=== PATIENT | male | born 1935 | race Caucasian/White ===

== ENCOUNTER 2018-03-12 13:23 | Inpatient (IN) | payer OTHER, BC ==
--- NOTE | 2018-03-12 14:45 | PDOC ---
History of Present Illness - General Chief Complaint: Wound Stated Complaint: PCP SENT Time Seen by Provider: 03/12/18 14:26 History Source: Patient Exam Limitations: No Limitations - History of Present Illness Initial Comments: 03/12/18 17:04 82-year-old male with complaints of worsening redness swelling and tenderness to his right lower extremity after having a basal cell removed by a manpower development specialist back on January 30. Patient states has been on multiple antibiotics including topicals with no improvement and states symptoms actually have worsened. Patient denies fever, chills or purulent drainage. Patient does state had a skin graft done from behind his right ear which also did not adhere to the wound. Patient has been seen by Dr. Obando who has referred the patient to an ER for IV antibiotics. Patient denies sensory changes distal of site, weakness of the lower extremity, or radiation of pain. Timing/Duration: constant, getting worse Severity: moderate Associated Symptoms: reports: denies symptoms Past History - Travel Traveled outside of the country in the last 30 days: No Close contact w/someone who was outside of country & ill: No - Past Medical History Allergies/Adverse Reactions: Allergies Allergy/AdvReac Type Severity Reaction Status Date / Time No Known Allergies Allergy Verified 03/12/18 13:24 Cardiac Disorders: Yes (irregular heart beat.) COPD: No CHF: No Other medical history: bronchitism hiatal hernia, skin cancer, - Immunization History Immunization Up to Date: No - Suicide/Smoking/Psychosocial Hx Smoking History: Never smoked Have you smoked in the past 12 months: No Information on smoking cessation initiated: No Hx Alcohol Use: No Drug/Substance Use Hx: No Patient Lives Alone: No Lives with/in: spouse/SO Review of Systems - Review of Systems Able to Perform ROS?: Yes Constitutional: No: Symptoms Reported HEENTM: No: Symptoms Reported Respiratory: No: Symptoms reported Cardiac (ROS): No: Symptoms Reported ABD/GI: No: Symptoms Reported Musculoskeletal: Yes: Muscle Pain (anterior RLE) Integumentary: Yes: Erythema, Lumps Neurological: No: Symptoms reported Endocrine: No: Symptoms Reported Hematologic/Lymphatic: No: Symptoms Reported *Physical Exam - Vital Signs Last Vital Signs Temp Pulse Resp BP Pulse Ox 97.9 F 116 H 16 120/62 99 03/12/18 13:24 03/12/18 13:24 03/12/18 13:24 03/12/18 13:24 03/12/18 13:24 - Physical Exam General Appearance: Yes: Nourished, Appropriately Dressed. No: Apparent Distress Respiratory/Chest: positive: Lungs Clear, Normal Breath Sounds. negative: Respiratory Distress, Accessory Muscle Use Cardiovascular: positive: Regular Rhythm, Tachycardia. negative: Murmur Gastrointestinal/Abdominal: positive: Soft. negative: Tenderness Extremity: positive: Normal Inspection (Noted 2 x 2 cm opened erythematous/ edematous wound to the mid shaft of right tibia. Surrounding skin erythematous edematous and warm to touch. No palpable fluctuance), Normal Range of Motion, Tender Integumentary: positive: Warm, Moist Neurologic: positive: Normal Mood/Affect, Motor Strength 5/5 Moderate Sedation - Procedure Monitoring Vital Signs: Procedure Monitoring Vital Signs Temperature 97.9 F 03/12/18 13:24 Pulse Rate 116 H 03/12/18 13:24 Respiratory Rate 16 03/12/18 13:24 Blood Pressure 120/62 03/12/18 13:24 O2 Sat by Pulse Oximetry (%) 99 03/12/18 13:24 ED Treatment Course - LABORATORY CBC & Chemistry Diagram: 03/12/18 15:20 03/12/18 15:20 Medical Decision Making - Medical Decision Making 03/12/18 17:00 Chief complaint: Nonhealing right anterior lower extremity wound after having a basal cell carcinoma removed on January 30. Patient has been on 3 different antibiotics including topical gentamicin and Bactroban with no improvement. supposed to dermatology JOAN Ba at [phone] full is requesting IV antibiotics and CT. Exam: Cellulitic open wound to the mid shaft of right tibia. Plan: Septic workup, IV Zosyn and Vanco ordered. Patient was ordered for duplex including CT with contrast. Consul placed to Dr. Fan infectious disease and will admit patient to hospitalist , ( patient is followed by Dr. Qiu) 03/12/18 17:10 Laboratory Tests 03/12/18 03/12/18 03/12/18 15:20 15:20 15:20 WBC 9.6 Hgb 15.1 Hct 43.3 Absolute Neuts (auto) 7.7 INR 1.10 H VBG pH 7.41 POC VBG pCO2 46.3 POC VBG pO2 28.7 Mixed VBG HCO3 29.0 H Sodium Potassium Chloride Carbon Dioxide Anion Gap BUN Creatinine Random Glucose Lactic Acid Albumin Urine Protein Urine Ketones Urine Nitrite Ur Leukocyte Esterase Urine WBC (Auto) Urine RBC (Auto) 03/12/18 03/12/18 03/12/18 15:20 15:20 15:38 WBC Hgb Hct Absolute Neuts (auto) INR VBG pH POC VBG pCO2 POC VBG pO2 Mixed VBG HCO3 Sodium 138 Potassium 4.7 Chloride 104 Carbon Dioxide 28 Anion Gap 6 L BUN 21 H Creatinine 0.8 Random Glucose 90 Lactic Acid 1.0 Albumin 3.3 L Urine Protein 1+ H Urine Ketones Trace H Urine Nitrite Negative Ur Leukocyte Esterase Negative Urine WBC (Auto) 4 Urine RBC (Auto) 4 03/12/18 17:11 chest x-ray shows again noted is a hernia at the left base with some congestive can changes and questionable pleural reaction/atelectasis at the left base. 03/12/18 17:34 Case discussed with hospitalist resident and will admit to Dr. Moreno *DC/Admit/Observation/Transfer Diagnosis at time of Disposition: Failure of outpatient treatment, Cellulitis of right lower leg - Discharge Dispostion Condition at time of disposition: Stable Decision to Admit order: Yes - Referrals Referrals: Samson Qiu MD [Primary Care Provider] - - Patient Instructions - Post Discharge Activity
[2018-03-12 15:53] LABS: VENOUS PC02 46.3 mmHg (38-52); VENOUS PH 7.41 (7.32-7.42); VENOUS PO2 28.7 mmHg (28-48)
[2018-03-12 15:58] LABS: BASO % 0.3 % (0-2.0); EOS % 0.8 % (0-4.5); HEMATOCRIT 43.3 % (35.4-49); HEMOGLOBIN 15.1 GM/dL (11.7-16.9); LYMPH % 11.8 % (8-40); MCH 31.4 pg (25.7-33.7); MEAN CELL VOLUME 89.9 fl (80-96); MEAN PLT VOLUME 8.1 fl (7.5-11.1); MONO % 6.8 % (3.8-10.2); NEUT % 80.3 % (42.8-82.8); PLATELET COUNT 310 K/MM3 (134-434); RBC 4.82 M/mm3 (4.00-5.60); WHITE BLOOD COUNT 9.6 K/mm3 (4.0-10.0)
[2018-03-12 16:06] LABS: URINE APPEARANCE SLCLOUDY; URINE BILIRUBIN NEGATIVE (<2.0 mg/dL); URINE COLOR AMBER; URINE GLUCOSE (UA) NEGATIVE (NEGATIVE); URINE KETONE TRACE (NEGATIVE); URINE LEUK ESTERASE NEGATIVE (NEGATIVE); URINE NITRITE NEGATIVE (NEGATIVE); URINE PROTEIN 1+ (NEGATIVE); URINE UROBILINOGEN NEGATIVE mg/dL (0.2-1.0)
[2018-03-12 16:16] LABS: ALBUMIN 3.3 g/dl (3.4-5.0); ALK PHOS 94 U/L (45-117); ANION GAP 6 MMOL/L (8-16); BILIRUBIN,TOTAL 0.5 mg/dL (0.2-1); BLOOD UREA NITROGEN 21 mg/dL (7-18); CALCIUM 9.1 mg/dL (8.5-10.1); CHLORIDE 104 mmol/L (98-107); CO2 28 mmol/L (21-32); CREATININE 0.8 mg/dL (0.55-1.3); GLUCOSE,RANDOM 90 mg/dL (74-106); POTASSIUM 4.7 mmol/L (3.5-5.1); SGOT/AST 24 U/L (15-37); SGPT/ALT 25 U/L (13-61); SODIUM 138 mmol/L (136-145); TOT PROT 7.1 g/dl (6.4-8.2)
[2018-03-12 16:30] LABS: EPI CELLS RARE /HPF (FEW); URINE HYALINE CAST 4 /lpf; URINE MUCUS MANY
[2018-03-12 16:34] LABS: INR 1.1 (0.83-1.09)
[2018-03-12] MEDS ORDERED: VANCOMYCIN 1 GRAM (PRE-DOCKED) 1,000 MG/250 ML BAG IVPB ONE ×2 (16:51→17:23)
[2018-03-12] MEDS ORDERED: PIPERACILLIN/TAZOB 4.5 GM 4.5 GM in DEXTROSE 5%-WATER 100 ML IVPB ONE (16:51)
[2018-03-12] MEDS ORDERED: PIPERACILLIN/TAZOB 4.5 GM 4.5 GM/100 ML BAG IVPB ONE (17:23)
--- NOTE | 2018-03-12 18:40 | PN ---
Teaching Attending Note Name of Resident: Breonna Gardner ATTENDING PHYSICIAN STATEMENT I saw and evaluated the patient. I reviewed the resident's note and discussed the case with the resident. I agree with the resident's findings and plan as documented with exceptions below. SUBJECTIVE: 82 yom with PMHx of HTN, HLD, ?arrhythmia, recently diagnosed basal cell carcinoma over left betancourt, s/p excision/graft placement from behind right ear has had progressive swelling/redness/discharge at the site of the wound. Has been seen by his academic associate Dr. Hernadez, s/p ?debridement and multiple abx, including topical bactroban/gentamicin and Oral doxycycline/cefodoxir with not much improvement. Today was sent to ED by her academic associate for IV abx and further treatment. reports some subjective chills but no reported fevers. 12 point ROS done, neg otherwise, fairly healthy and functional. OBJECTIVE: Vital Signs Period Temp Pulse Resp BP Sys/Clark Pulse Ox Last 24 Hr 97.9 F 116 16 120/62 99 Intake & Output 03/09/18 03/10/18 03/11/18 03/12/18 23:59 23:59 23:59 23:59 Weight 138 lb GENERAL: Awake, alert, and fully oriented, in no acute distress. HEAD: Normal with no signs of trauma. EYES: Pupils equal, round and reactive to light, extraocular movements intact, sclera anicteric, conjunctiva clear. No lid lag. EARS, NOSE, THROAT: Ears normal, nares patent, oropharynx clear without exudates. Moist mucous membranes. NECK: Normal range of motion, supple without lymphadenopathy, JVD, or masses. LUNGS: Breath sounds equal, clear to auscultation bilaterally. No wheezes, and no crackles. No accessory muscle use. HEART: S1S2 irregular, tachycardic ABDOMEN: Soft, nontender, not distended, normoactive bowel sounds, no guarding, no rebound, no masses. MUSCULOSKELETAL: Normal range of motion at all joints. No bony deformities or tenderness. No CVA tenderness except LLE limited by pain. UPPER EXTREMITIES: 2+ pulses, warm, well-perfused. No cyanosis. No clubbing. No peripheral edema. LOWER EXTREMITIES: 2 cm oval area over left betancourt with erythema, mild tenderness , 1 cm superficial ulcer with minimal yellowish foul smelling discharge with surrounding area of fluctuation, minimal yellowish drainage noted on expressing the area, surrounding erythema, positive DP pulses, NEUROLOGICAL: Cranial nerves II-XII intact. Normal speech. Gait deferred PSYCHIATRIC: Cooperative. Good eye contact. Appropriate mood and affect. SKIN: Warm, dry, normal turgor, no rashes or lesions noted, normal capillary refill. Home Medications Medication Instructions Recorded Aspirin [ASA -] 81 mg PO DAILY 03/12/18 Cefadroxil 500 mg PO BID 03/12/18 Simvastatin [Zocor -] 40 mg PO HS 03/12/18 Terazosin HCl 10 mg PO DAILY 03/12/18 Active Medications Heparin Sodium (Porcine) (Heparin -) 5,000 unit SQ Q8H-IV ISAAC Laboratory Results - last 24 hr 03/12/18 03/12/18 03/12/18 13:20 15:20 15:20 WBC 9.6 RBC 4.82 Hgb 15.1 Hct 43.3 MCV 89.9 MCH 31.4 MCHC 35.0 RDW 13.0 Plt Count 310 MPV 8.1 Absolute Neuts (auto) 7.7 Neutrophils % 80.3 Lymphocytes % 11.8 Monocytes % 6.8 Eosinophils % 0.8 Basophils % 0.3 Nucleated RBC % 0 PT with INR 13.00 INR 1.10 H VBG pH POC VBG pCO2 POC VBG pO2 Mixed VBG HCO3 Sodium Potassium Chloride Carbon Dioxide Anion Gap BUN Creatinine Creat Clearance w eGFR Random Glucose Lactic Acid Calcium Total Bilirubin AST ALT Alkaline Phosphatase Troponin I < 0.02 Total Protein Albumin Urine Color Urine Appearance Urine pH Ur Specific [place] Urine Protein Urine Glucose (UA) Urine Ketones Urine Blood Urine Nitrite Urine Bilirubin Urine Urobilinogen Ur Leukocyte Esterase Urine WBC (Auto) Urine RBC (Auto) Ur Epithelial Cells Hyaline Casts Urine Mucus 03/12/18 03/12/18 03/12/18 15:20 15:20 15:20 WBC RBC Hgb Hct MCV MCH MCHC RDW Plt Count MPV Absolute Neuts (auto) Neutrophils % Lymphocytes % Monocytes % Eosinophils % Basophils % Nucleated RBC % PT with INR INR VBG pH 7.41 POC VBG pCO2 46.3 POC VBG pO2 28.7 Mixed VBG HCO3 29.0 H Sodium 138 Potassium 4.7 Chloride 104 Carbon Dioxide 28 Anion Gap 6 L BUN 21 H Creatinine 0.8 Creat Clearance w eGFR > 60 Random Glucose 90 Lactic Acid 1.0 Calcium 9.1 Total Bilirubin 0.5 AST 24 ALT 25 Alkaline Phosphatase 94 Troponin I Total Protein 7.1 Albumin 3.3 L Urine Color Urine Appearance Urine pH Ur Specific [place] Urine Protein Urine Glucose (UA) Urine Ketones Urine Blood Urine Nitrite Urine Bilirubin Urine Urobilinogen Ur Leukocyte Esterase Urine WBC (Auto) Urine RBC (Auto) Ur Epithelial Cells Hyaline Casts Urine Mucus 03/12/18 15:38 WBC RBC Hgb Hct MCV MCH MCHC RDW Plt Count MPV Absolute Neuts (auto) Neutrophils % Lymphocytes % Monocytes % Eosinophils % Basophils % Nucleated RBC % PT with INR INR VBG pH POC VBG pCO2 POC VBG pO2 Mixed VBG HCO3 Sodium Potassium Chloride Carbon Dioxide Anion Gap BUN Creatinine Creat Clearance w eGFR Random Glucose Lactic Acid Calcium Total Bilirubin AST ALT Alkaline Phosphatase Troponin I Total Protein Albumin Urine Color [place] Urine Appearance Slcloudy Urine pH 5.0 Ur Specific [place] 1.028 Urine Protein 1+ H Urine Glucose (UA) Negative Urine Ketones Trace H Urine Blood Negative Urine Nitrite Negative Urine Bilirubin Negative Urine Urobilinogen Negative Ur Leukocyte Esterase Negative Urine WBC (Auto) 4 Urine RBC (Auto) 4 Ur Epithelial Cells Rare Hyaline Casts 4 Urine Mucus Many CXr with hiatal hernia, image and results reviewed ASSESSMENT AND PLAN: 82 yom with LLE cellulitis wiht suspected abscess at recent basal cell carcinoma excision/graft placement site. -LLE cellulitis with suspected abscess -recently diagnosed basal cell ca left shift s/p excision/graft placement and ? debridement of the wound -?arrhythmia -HTN -HLD Plan: Zosyn/vancomycin. Blood/wound cx. Suspect needs I&D, surgical consult. ID input. Dermatology input Dr. Hernadez. NPO after midnight just in case. Gentle hydration. CT LE/LE duplex ordered from ED Check ESR/CRP. Check EKG Continue terazocin/statin DVTPPX lovenox Dispo pending resolution of medical issues. Plan discussed with patient in detail, all questions answered. total admit time spent 55 min.
[2018-03-12] MEDS ORDERED: HEPARIN NA (PORCINE) 5,000 UNITS/ML 1ML VIAL SQ SCH (18:45)
--- NOTE | 2018-03-12 18:47 | HP ---
CHIEF COMPLAINT: RLE swelling and pain PCP:Dr Qiu HISTORY OF PRESENT ILLNESS: 82 y/o male with PMH of HLD, basal cell carcinoma, chronic bronchitis presents to the ER from his PCP with worsening RLE swelling/tenderness/pain- patient was diagnosed at the end of january with basal cell carcinoma on his right betancourt where he was sent to a plastic surgeon who removed the lesion and used skin from his right ear as a graft. patient had no complaints for a week then started to develop increased pain, swelling and pressure. He went back to the plastic surgeon back and forth where there was two I and D's done ? unclear excaxctly if cultures were taken etc. He failed outpatient antibiotics a few times (will clarify exactly which abx were given) he denies any recent travel ER course was notable for: (1)given vanc and zosyn (2)normal [place] (3)ultrasound CT pending Recent Travel: denies PAST MEDICAL HISTORY: see above PAST SURGICAL HISTORY: appendectomy, cataract, hernia Social History: Smoking:denies Alcohol:denies Drugs: denies Family History: DM on his parents side Allergies No Known Allergies Allergy (Verified 03/12/18 13:24) HOME MEDICATIONS: Home Medications Medication Instructions Recorded Aspirin [ASA -] 81 mg PO DAILY 03/12/18 Cefadroxil 500 mg PO BID 03/12/18 Simvastatin [Zocor -] 40 mg PO HS 03/12/18 Terazosin HCl 10 mg PO DAILY 03/12/18 REVIEW OF SYSTEMS CONSTITUTIONAL: Absent: fever, chills, diaphoresis, generalized weakness, malaise, loss of appetite, weight change HEENT: Absent: rhinorrhea, nasal congestion, throat pain, throat swelling, difficulty swallowing, mouth swelling, ear pain, eye pain, visual changes CARDIOVASCULAR: Absent: chest pain, syncope, palpitations, irregular heart rate, lightheadedness , peripheral edema RESPIRATORY: Absent: cough, shortness of breath, dyspnea with exertion, orthopnea, wheezing, stridor, hemoptysis GASTROINTESTINAL: Absent: abdominal pain, abdominal distension, nausea, vomiting, diarrhea, constipation, melena, hematochezia GENITOURINARY: Absent: dysuria, frequency, urgency, hesitancy, hematuria, flank pain, genital pain MUSCULOSKELETAL: Absent: myalgia, arthralgia, joint swelling, back pain, neck pain SKIN: Absent: rash, itching, pallor HEMATOLOGIC/IMMUNOLOGIC: Absent: easy bleeding, easy bruising, lymphadenopathy, frequent infections ENDOCRINE: Absent: unexplained weight gain, unexplained weight loss, heat intolerance, cold intolerance NEUROLOGIC: Absent: headache, focal weakness or paresthesias, dizziness, unsteady gait, seizure, mental status changes, bladder or bowel incontinence PSYCHIATRIC: Absent: anxiety, depression, suicidal or homicidal ideation, hallucinations. PHYSICAL EXAMINATION Vital Signs - 24 hr 03/12/18 13:24 Temperature 97.9 F Pulse Rate 116 H Respiratory 16 Rate Blood Pressure 120/62 O2 Sat by Pulse 99 Oximetry (%) GENERAL: Awake, alert, and fully oriented, in no acute distress. EYES:no scleral icterus NECK: no JVD no lymphadenopathy LUNGS: CTA B/L; no rales, rhonchi or wheezing HEART: tachycardic, normal S1 and S2 without murmur, rub or gallop. ABDOMEN: Soft, nontender, not distended, normoactive bowel sounds, no guarding, no rebound, no masses. No hepatomegaly or splenomegaly. MUSCULOSKELETAL: Normal range of motion at all joints. No bony deformities or tenderness. No CVA tenderness. EXTREMITY: RLE anterior betancourt erythematous with areas of fluctuance, edema some drainage; slight tenderness upon palpation NEUROLOGICAL: Cranial nerves II-XII intact. Normal speech. Normal gait. PSYCHIATRIC: Cooperative. Good eye contact. Appropriate mood and affect. SKIN: Warm, dry, normal turgor, no rashes or lesions noted, normal capillary refill. Laboratory Results - last 24 hr 03/12/18 03/12/18 03/12/18 13:20 15:20 15:20 WBC 9.6 RBC 4.82 Hgb 15.1 Hct 43.3 MCV 89.9 MCH 31.4 MCHC 35.0 RDW 13.0 Plt Count 310 MPV 8.1 Absolute Neuts (auto) 7.7 Neutrophils % 80.3 Lymphocytes % 11.8 Monocytes % 6.8 Eosinophils % 0.8 Basophils % 0.3 Nucleated RBC % 0 PT with INR 13.00 INR 1.10 H VBG pH POC VBG pCO2 POC VBG pO2 Mixed VBG HCO3 Sodium Potassium Chloride Carbon Dioxide Anion Gap BUN Creatinine Creat Clearance w eGFR Random Glucose Lactic Acid Calcium Total Bilirubin AST ALT Alkaline Phosphatase Troponin I < 0.02 Total Protein Albumin Urine Color Urine Appearance Urine pH Ur Specific [place] Urine Protein Urine Glucose (UA) Urine Ketones Urine Blood Urine Nitrite Urine Bilirubin Urine Urobilinogen Ur Leukocyte Esterase Urine WBC (Auto) Urine RBC (Auto) Ur Epithelial Cells Hyaline Casts Urine Mucus 03/12/18 03/12/18 03/12/18 15:20 15:20 15:20 WBC RBC Hgb Hct MCV MCH MCHC RDW Plt Count MPV Absolute Neuts (auto) Neutrophils % Lymphocytes % Monocytes % Eosinophils % Basophils % Nucleated RBC % PT with INR INR VBG pH 7.41 POC VBG pCO2 46.3 POC VBG pO2 28.7 Mixed VBG HCO3 29.0 H Sodium 138 Potassium 4.7 Chloride 104 Carbon Dioxide 28 Anion Gap 6 L BUN 21 H Creatinine 0.8 Creat Clearance w eGFR > 60 Random Glucose 90 Lactic Acid 1.0 Calcium 9.1 Total Bilirubin 0.5 AST 24 ALT 25 Alkaline Phosphatase 94 Troponin I Total Protein 7.1 Albumin 3.3 L Urine Color Urine Appearance Urine pH Ur Specific [place] Urine Protein Urine Glucose (UA) Urine Ketones Urine Blood Urine Nitrite Urine Bilirubin Urine Urobilinogen Ur Leukocyte Esterase Urine WBC (Auto) Urine RBC (Auto) Ur Epithelial Cells Hyaline Casts Urine Mucus 03/12/18 15:38 WBC RBC Hgb Hct MCV MCH MCHC RDW Plt Count MPV Absolute Neuts (auto) Neutrophils % Lymphocytes % Monocytes % Eosinophils % Basophils % Nucleated RBC % PT with INR INR VBG pH POC VBG pCO2 POC VBG pO2 Mixed VBG HCO3 Sodium Potassium Chloride Carbon Dioxide Anion Gap BUN Creatinine Creat Clearance w eGFR Random Glucose Lactic Acid Calcium Total Bilirubin AST ALT Alkaline Phosphatase Troponin I Total Protein Albumin Urine Color [place] Urine Appearance Slcloudy Urine pH 5.0 Ur Specific [place] 1.028 Urine Protein 1+ H Urine Glucose (UA) Negative Urine Ketones Trace H Urine Blood Negative Urine Nitrite Negative Urine Bilirubin Negative Urine Urobilinogen Negative Ur Leukocyte Esterase Negative Urine WBC (Auto) 4 Urine RBC (Auto) 4 Ur Epithelial Cells Rare Hyaline Casts 4 Urine Mucus Many ASSESSMENT/PLAN: 82 y/o male with PMH of HLD, basal cell carcinoma, chronic bronchitis presents to the ED with worsening RLE swelling, tenderness, pain possible abscess at the excision/graft site #RLE Abscess receieved vand and zosyn in the ED -c/w vanc and zosyn for now -f/u wound cx -surgery and ID consulted -ESR/CRP ordered -monitor hemodynamics -duplex and CT scan pending to evaluate for fluctuance -NPO after midnight for possible procedure -holding lovenox -will clarify with pharmacy what abx patient was on in past #HLD -c/w simvastatin 40mg #BPH -c/w home meds F/E/N D5@83mls/hr monitor BMP NPO after midnight Problem List - Problem (1) Cellulitis of right lower leg Code(s): L03.115 - CELLULITIS OF RIGHT LOWER LIMB (2) Failure of outpatient treatment Code(s): Z78.9 - OTHER SPECIFIED HEALTH STATUS Visit type - Emergency Visit Emergency Visit: Yes Care time: The patient presented to the Emergency Department on the above date and was hospitalized for further evaluation of their emergent condition. - New Patient This patient is new to me today: Yes Date on this admission: 03/12/18 - Critical Care Critical Care patient: No
[2018-03-12] MEDS ORDERED: HEPARIN NA (PORCINE) 5,000 UNITS/ML 1ML VIAL ONE (18:54)
[2018-03-12] MEDS ORDERED: VANCOMYCIN 1 GRAM (PRE-DOCKED) 1,000 MG/250 ML BAG IVPB SCH (19:45)
[2018-03-12] MEDS: DEXTROSE 5%-NORMAL SALINE 1,000 ML IV SCH (20:45)
[2018-03-13] MEDS ORDERED: PIPERACILLIN/TAZOB 2.25 GM 2.25 GM in DEXTROSE 5%-WATER - 50 ML IVPB SCH (02:00)
[2018-03-13] MEDS: PIPERACILLIN/TAZOB 2.25 GM 2.25 GM in DEXTROSE 5%-WATER - 50 ML IVPB SCH ×2 (02:08→10:33)
[2018-03-13] MEDS ORDERED: PIPERACILLIN/TAZOB 2.25 GM 2.25 GM/50 ML BAG IVPB ONE (02:59)
[2018-03-13] MEDS ORDERED: VANCOMYCIN 1 GRAM (PRE-DOCKED) 1,000 MG/250 ML BAG IVPB ONE (04:35)
[2018-03-13 05:34] LABS: BASO % 0.4 % (0-2.0); EOS % 1.9 % (0-4.5); HEMATOCRIT 40.4 % (35.4-49); HEMOGLOBIN 13.3 GM/dL (11.7-16.9); LYMPH % 15.9 % (8-40); MCHC 32.9 g/dl (32.0-35.9); MEAN CELL VOLUME 91.1 fl (80-96); MEAN PLT VOLUME 7.6 fl (7.5-11.1); MONO % 6.7 % (3.8-10.2); NEUT % 75.1 % (42.8-82.8); PLATELET COUNT 278 K/MM3 (134-434); RBC 4.43 M/mm3 (4.00-5.60); RDW 13.3 % (11.9-15.9); WHITE BLOOD COUNT 8.5 K/mm3 (4.0-10.0)
[2018-03-13] MEDS ORDERED: VANCOMYCIN 1 GRAM (PRE-DOCKED) 1,000 MG/250 ML BAG IVPB SCH (06:00)
[2018-03-13 06:02] LABS: ALBUMIN 2.9 g/dl (3.4-5.0); ALK PHOS 74 U/L (45-117); ANION GAP 5 MMOL/L (8-16); BILIRUBIN,TOTAL 0.9 mg/dL (0.2-1); BLOOD UREA NITROGEN 18 mg/dL (7-18); CALCIUM 8.1 mg/dL (8.5-10.1); CHLORIDE 107 mmol/L (98-107); CO2 26 mmol/L (21-32); CREATININE 0.9 mg/dL (0.55-1.3); GLUCOSE,RANDOM 81 mg/dL (74-106); PHOSPHOROUS 3.2 mg/dL (2.5-4.9); POTASSIUM 4.2 mmol/L (3.5-5.1); SGOT/AST 13 U/L (15-37); SGPT/ALT 20 U/L (13-61); SODIUM 137 mmol/L (136-145); TOT PROT 5.9 g/dl (6.4-8.2)
--- NOTE | 2018-03-13 08:17 | PN ---
Physical Exam: SUBJECTIVE: Patient seen and examined at bedside- no acute events overnight; patient states he is feeling well; denies having any CP./SOB/N/V fevers or chills, has a slight throbbing sensation at the betancourt but only lasting a few seconds otherwise is not very tender. OBJECTIVE: Vital Signs Period Temp Pulse Resp BP Sys/Clark Pulse Ox Last 24 Hr 97.9 F 76-116 16-20 105-120/62-97 96-99 GENERAL: The patient is awake, alert, and fully oriented, in no acute distress. EYES: no scleral icterus. . NECK: no JVD, no lymphadenopathy LUNGS: CTA B/L; no rales, rhonchi or wheezing. HEART: Regular rate tachycardic, S1, S2 without murmur, rub or gallop. ABDOMEN: Soft, nontender, nondistended, normoactive bowel sounds, no guarding, no rebound, no hepatosplenomegaly, no masses. EXTREMITIES: RLE nickel shaped area over right betancourt with erythema, slightly tender upon palpation; with superficial ulcer with minimal drainage and fluctuance appreciated. PSYCH: Normal mood, normal affect. SKIN: Warm, dry, normal turgor, no rashes or lesions noted Laboratory Results - last 24 hr 03/12/18 03/12/18 03/12/18 13:20 15:20 15:20 WBC 9.6 RBC 4.82 Hgb 15.1 Hct 43.3 MCV 89.9 MCH 31.4 MCHC 35.0 RDW 13.0 Plt Count 310 MPV 8.1 Absolute Neuts (auto) 7.7 Neutrophils % 80.3 Lymphocytes % 11.8 Monocytes % 6.8 Eosinophils % 0.8 Basophils % 0.3 Nucleated RBC % 0 ESR PT with INR 13.00 INR 1.10 H VBG pH POC VBG pCO2 POC VBG pO2 Mixed VBG HCO3 Sodium Potassium Chloride Carbon Dioxide Anion Gap BUN Creatinine Creat Clearance w eGFR Random Glucose Lactic Acid Calcium Phosphorus Magnesium Total Bilirubin AST ALT Alkaline Phosphatase Troponin I < 0.02 C-Reactive Protein Total Protein Albumin Urine Color Urine Appearance Urine pH Ur Specific Napoleon Urine Protein Urine Glucose (UA) Urine Ketones Urine Blood Urine Nitrite Urine Bilirubin Urine Urobilinogen Ur Leukocyte Esterase Urine WBC (Auto) Urine RBC (Auto) Ur Epithelial Cells Hyaline Casts Urine Mucus 03/12/18 03/12/18 03/12/18 15:20 15:20 15:20 WBC RBC Hgb Hct MCV MCH MCHC RDW Plt Count MPV Absolute Neuts (auto) Neutrophils % Lymphocytes % Monocytes % Eosinophils % Basophils % Nucleated RBC % ESR PT with INR INR VBG pH 7.41 POC VBG pCO2 46.3 POC VBG pO2 28.7 Mixed VBG HCO3 29.0 H Sodium 138 Potassium 4.7 Chloride 104 Carbon Dioxide 28 Anion Gap 6 L BUN 21 H Creatinine 0.8 Creat Clearance w eGFR > 60 Random Glucose 90 Lactic Acid 1.0 Calcium 9.1 Phosphorus Magnesium Total Bilirubin 0.5 AST 24 ALT 25 Alkaline Phosphatase 94 Troponin I C-Reactive Protein Total Protein 7.1 Albumin 3.3 L Urine Color Urine Appearance Urine pH Ur Specific Napoleon Urine Protein Urine Glucose (UA) Urine Ketones Urine Blood Urine Nitrite Urine Bilirubin Urine Urobilinogen Ur Leukocyte Esterase Urine WBC (Auto) Urine RBC (Auto) Ur Epithelial Cells Hyaline Casts Urine Mucus 03/12/18 03/12/18 03/12/18 15:38 21:50 21:50 WBC RBC Hgb Hct MCV MCH MCHC RDW Plt Count MPV Absolute Neuts (auto) Neutrophils % Lymphocytes % Monocytes % Eosinophils % Basophils % Nucleated RBC % ESR PT with INR INR VBG pH POC VBG pCO2 POC VBG pO2 Mixed VBG HCO3 Sodium Potassium Chloride Carbon Dioxide Anion Gap BUN Creatinine Creat Clearance w eGFR Random Glucose Lactic Acid 1.1 Calcium Phosphorus Magnesium Total Bilirubin AST ALT Alkaline Phosphatase Troponin I C-Reactive Protein 0.5 H Total Protein Albumin Urine Color [place] Urine Appearance Slcloudy Urine pH 5.0 Ur Specific Napoleon 1.028 Urine Protein 1+ H Urine Glucose (UA) Negative Urine Ketones Trace H Urine Blood Negative Urine Nitrite Negative Urine Bilirubin Negative Urine Urobilinogen Negative Ur Leukocyte Esterase Negative Urine WBC (Auto) 4 Urine RBC (Auto) 4 Ur Epithelial Cells Rare Hyaline Casts 4 Urine Mucus Many 03/12/18 03/13/18 03/13/18 21:50 05:00 05:00 WBC 8.5 RBC 4.43 Hgb 13.3 Hct 40.4 MCV 91.1 MCH 30.0 MCHC 32.9 RDW 13.3 Plt Count 278 MPV 7.6 Absolute Neuts (auto) 6.4 Neutrophils % 75.1 Lymphocytes % 15.9 D Monocytes % 6.7 Eosinophils % 1.9 D Basophils % 0.4 Nucleated RBC % 0 ESR 44 H PT with INR INR VBG pH POC VBG pCO2 POC VBG pO2 Mixed VBG HCO3 Sodium 137 Potassium 4.2 Chloride 107 Carbon Dioxide 26 Anion Gap 5 L BUN 18 Creatinine 0.9 Creat Clearance w eGFR > 60 Random Glucose 81 Lactic Acid Calcium 8.1 L Phosphorus 3.2 Magnesium 2.0 Total Bilirubin 0.9 AST 13 L ALT 20 Alkaline Phosphatase 74 Troponin I C-Reactive Protein Total Protein 5.9 L Albumin 2.9 L Urine Color Urine Appearance Urine pH Ur Specific Napoleon Urine Protein Urine Glucose (UA) Urine Ketones Urine Blood Urine Nitrite Urine Bilirubin Urine Urobilinogen Ur Leukocyte Esterase Urine WBC (Auto) Urine RBC (Auto) Ur Epithelial Cells Hyaline Casts Urine Mucus Active Medications Generic Name Dose Route Start Last Admin Trade Name Freq PRN Reason Stop Dose Admin Vancomycin HCl 1,000 mg in 250 mls @ 166.667 mls/hr 03/12/18 19:45 Vancomycin (Pre-Docked) IVPB Q12H ISAAC Protocol Dextrose/Sodium Chloride 1,000 mls @ 83 mls/hr 03/12/18 19:00 03/12/18 20:45 D5-Ns - IV 83 mls/hr ASDIR ISAAC Administration Piperacillin Sod/Tazobactam 50 mls @ 100 mls/hr 03/13/18 02:00 Sod 2.25 gm/ Dextrose IVPB Q8H-IV ISAAC Protocol Vancomycin HCl 1,000 mg in 250 mls @ 166.667 mls/hr 03/13/18 06:00 03/13/18 05:23 Vancomycin (Pre-Docked) IVPB 03/13/18 19:29 166.667 mls/hr Q12H ISAAC Administration Protocol Piperacillin Sod/Tazobactam 50 mls @ 100 mls/hr 03/13/18 02:00 03/13/18 02:08 Sod 2.25 gm/ Dextrose IVPB 03/13/18 18:29 100 mls/hr Q8H-IV ISAAC Administration Protocol ASSESSMENT/PLAN: 82 y/o male with PMH of HLD, basal cell carcinoma, chronic bronchitis presents to the ED with worsening RLE swelling, tenderness, pain possible abscess at the excision/graft site #RLE Abscess receieved vanc and zosyn in the ED -c/w vanc and zosyn -f/u wound cx -surgery and ID consulted -ESR/CRP both elevated -duplex negative for DVT; CT scan not showing any evidence of abscess or acute pathology -arash Patterson saw pt tody no surgery advised leg elevation with dressing changes BID -will clarify with pharmacy what abx patient was on in past #HLD -c/w simvastatin 40mg #BPH -c/w home meds DVT PPX: lovenox (holding in light of possible procedure?) F/E/N D5@83mls/hr monitor BMP sodium controlled diet Problem List - Problems (1) Cellulitis of right lower leg Code(s): L03.115 - CELLULITIS OF RIGHT LOWER LIMB (2) Failure of outpatient treatment Code(s): Z78.9 - OTHER SPECIFIED HEALTH STATUS Visit type - Emergency Visit Emergency Visit: Yes ED Registration Date: 03/12/18 Care time: The patient presented to the Emergency Department on the above date and was hospitalized for further evaluation of their emergent condition. - New Patient This patient is new to me today: No - Critical Care Critical Care patient: No
--- NOTE | 2018-03-13 10:23 | CONSULT ---
- Consultation REQUESTING PROVIDER: ER MD CONSULT REQUEST: We have been asked to surgically evaluate this patient for mangement of an open wound of the RLE PCP:Marisela Vela HISTORY OF PRESENT ILLNESS: SAHARAP who is an 82 y/o white male s/p Mohs surgery for a BCC of the RLE and application of a FTSG from behind the right ear in early February 2018; he apparently by hx. had breakdown of the wound and probable slough of the skin graft; he has had tx. w/ antibiotics and LWC w/poor results; he was sent to the ER for failure of OP tx.; he has some pain at the site of the excision and he denies trauma to the area; he has had a previous BCC excision in the left LE.. PMHx: arrythmia; HLD; HTN PSHx: none Home Medications Medication Instructions Recorded Aspirin [ASA -] 81 mg PO DAILY 03/12/18 Cefadroxil 500 mg PO BID 03/12/18 Simvastatin [Zocor -] 40 mg PO HS 03/12/18 Terazosin HCl 10 mg PO DAILY 03/12/18 Allergies Allergy/AdvReac Type Severity Reaction Status Date / Time No Known Allergies Allergy Verified 03/12/18 13:24 PHYSICAL EXAM: GENERAL: Awake, alert, and fully oriented, in no acute distress. HEAD: Normal with no signs of trauma; scar behind right ear well healed. EYES: sclera anicteric, conjunctiva clear. NECK: Normal ROM, supple without lymphadenopathy, JVD, or masses. LUNGS: Clear to auscultation bilat anteriorly. No wheezes, and no crackles. No accessory muscle use. HEART: Irregular rate and rhythm. ABDOMEN: Soft, nontender, not distended, normoactive bowel sounds, no guarding, no rebound, no masses. No organomegaly. MUSCULOSKELETAL: Normal ROM at all joints. No bony deformities or tenderness. No CVA tenderness. UPPER EXTREMITIES: 2+ pulses, warm, well-perfused. No cyanosis. Cap refill <2 seconds. No peripheral edema. LOWER EXTREMITIES: 2+ pulses, warm, well-perfused. No calf tenderness. There is RLE peripheral edema. NEUROLOGICAL: Normal speech, gait not observed. PSYCH: Cooperative. Good eye contact. Appropriate mood and affect. SKIN: Open wound RLE ~ 2.5 cm. in greatest dimension w/STS w/surrounding edema and violaceous appearing skin; there is TTP; there is no purulent d/c but the wound appears to be superficially infected; o/w negative. Vital Signs Temperature 97.9 F 03/12/18 13:24 Pulse Rate 76 03/13/18 06:11 Respiratory Rate 20 03/13/18 06:11 Blood Pressure 105/70 03/13/18 06:11 O2 Sat by Pulse Oximetry (%) 97 03/13/18 06:11 Lab Results WBC 8.5 K/mm3 (4.0-10.0) 03/13/18 05:00 RBC 4.43 M/mm3 (4.00-5.60) 03/13/18 05:00 Hgb 13.3 GM/dL (11.7-16.9) 03/13/18 05:00 Hct 40.4 % (35.4-49) 03/13/18 05:00 MCV 91.1 fl (80-96) 03/13/18 05:00 MCHC 32.9 g/dl (32.0-35.9) 03/13/18 05:00 RDW 13.3 % (11.9-15.9) 03/13/18 05:00 Plt Count 278 K/MM3 (134-434) 03/13/18 05:00 Sodium 137 mmol/L (136-145) 03/13/18 05:00 Potassium 4.2 mmol/L (3.5-5.1) 03/13/18 05:00 Chloride 107 mmol/L (98-107) 03/13/18 05:00 Carbon Dioxide 26 mmol/L (21-32) 03/13/18 05:00 Anion Gap 5 MMOL/L (8-16) L 03/13/18 05:00 BUN 18 mg/dL (7-18) 03/13/18 05:00 Creatinine 0.9 mg/dL (0.55-1.3) 03/13/18 05:00 Random Glucose 81 mg/dL (74-106) 03/13/18 05:00 Calcium 8.1 mg/dL (8.5-10.1) L 03/13/18 05:00 INR 1.10 (0.83-1.09) H 03/12/18 15:20 Imaging w/u to date reviewed. IMP: open wound RLE s/p excision of a BCC and application of a FTSG w/slough and wound infection; there is no evidence of abscess or collection clinically or on imaging. PLAN: Advise leg elevation w/ankle above the level of the chest; NS wet to dry dressing changes BID; IVAB's and DVT prophylaxis; will f/u. Odilon Vidal MD FACS
--- NOTE | 2018-03-13 12:58 | EKG ---
Test Reason : Blood Pressure : / mmHG Vent. Rate : 098 BPM Atrial Rate : 098 BPM P-R Int : 140 ms QRS Dur : 092 ms QT Int : 344 ms P-R-T Axes : 051 084 032 degrees QTc Int : 439 ms SINUS RHYTHM WITH PREMATURE SUPRAVENTRICULAR COMPLEXES POSSIBLE LEFT ATRIAL ENLARGEMENT BORDERLINE ECG WHEN COMPARED WITH ECG OF 07-FEB-2011 14:54, NO SIGNIFICANT CHANGE WAS FOUND Confirmed by Carlton Medina ([id number]) on 03/13/2018 12:58:16 PM Referred By: Confirmed By:Carlton Medina
[2018-03-13] MEDS: DEXTROSE 5%-NORMAL SALINE 1,000 ML IV SCH (13:03)
--- NOTE | 2018-03-13 13:07 | CON.ID ---
Consult Consult Specialty:: infectious diseases Reason for Consultation:: bacteremia,wound infection - History of Present Illness Chief Complaint: wound infection History of Present Illness: 82 y/o male with PMH of HLD, basal cell carcinoma, chronic bronchitis admitted to the hospital because of non healing wound which ahs got infected and has not been healing post op patient was diagnosed at the end of january with basal cell carcinoma on his right betancourt where he was sent to a plastic surgeon who removed the lesion and used skin from his right ear as a graft. patient had no complaints for a week then started to develop increased pain, swelling and pressure. He went back to the plastic surgeon there was two I and D's done no cx from there patient was started on abx orally on which he did not improve Now patient has got admitted with infected wound and also his blood cx are positive] patient does not have any fever or any other symptoms - History Source History Provided By: Patient, Family Member Limitations to Obtaining History: No Limitations - Alcohol/Substance Use Hx Alcohol Use: No - Smoking History Smoking history: Never smoked Have you smoked in the past 12 months: No Home Medications - Allergies Allergies/Adverse Reactions: Allergies Allergy/AdvReac Type Severity Reaction Status Date / Time No Known Allergies Allergy Verified 03/12/18 13:24 - Home Medications Home Medications: Ambulatory Orders Aspirin [ASA -] 81 mg PO DAILY 03/12/18 Cefadroxil 500 mg PO BID 03/12/18 Simvastatin [Zocor -] 40 mg PO HS 03/12/18 Terazosin HCl 10 mg PO DAILY 03/12/18 Review of Systems - Review of Systems Constitutional: reports: No Symptoms Eyes: reports: No Symptoms HENT: reports: No Symptoms Neck: reports: No Symptoms Cardiovascular: reports: No Symptoms Respiratory: reports: No Symptoms Gastrointestinal: reports: No Symptoms Genitourinary: reports: No Symptoms Musculoskeletal: reports: Other Integumentary: reports: Change in Color, Erythema, Wound Neurological: reports: No Symptoms Endocrine: reports: No Symptoms Hematology/Lymphatic: reports: No Symptoms Psychiatric: reports: No Symptoms Physical Exam Vital Signs: Vital Signs Temperature 97.7 F 03/13/18 11:35 Pulse Rate 67 03/13/18 11:35 Respiratory Rate 18 03/13/18 11:35 Blood Pressure 123/90 03/13/18 11:35 O2 Sat by Pulse Oximetry (%) 95 03/13/18 11:35 Constitutional: Yes: Well Nourished, No Distress, Calm Eyes: Yes: Conjunctiva Clear HENT: Yes: Atraumatic, Normocephalic Neck: Yes: Supple, Trachea Midline Cardiovascular: Yes: Regular Rate and Rhythm Respiratory: Yes: Regular, CTA Bilaterally Gastrointestinal: Yes: Normal Bowel Sounds, Soft Musculoskeletal: Yes: WNL, Other Extremities: Yes: Erythema, Other Integumentary: Yes: Erythema, Other (no healing wound) Wound/Incision: Yes: Dressing Removed, Other (wound looked at) Neurological: Yes: Alert, Oriented Psychiatric: Yes: Alert, Oriented Labs: CBC, BMP 03/13/18 05:00 03/13/18 05:00 Imaging - Results Chest X-ray: Report Reviewed, Image Reviewed Cat Scan: Report Reviewed, Image Reviewed Assessment/Plan wound infection cellulitis of the rt leg gm positive bacteremia non healing wound plan swift start on zosyn wound care
[2018-03-13] MEDS ORDERED: PIPERACILLIN/TAZOBACTAM 3.375 GM VIAL IVPB ONE ×2 (14:14→17:32)
[2018-03-13] MEDS ORDERED: DEXTROSE 5%-WATER - 50 ML IVPB ONE ×2 (14:14→17:32)
[2018-03-13] MEDS: PIPERACILLIN/TAZOB 3.375 GM 3.375 GM in DEXTROSE 5%-WATER - 50 ML IVPB SCH ×2 (14:18→17:57)
[2018-03-13 15:06] VITALS: BMI 22.8
[2018-03-13] MEDS: LACTOBACILLUS ACIDOPHILUS 1 TABLET PO SCH (16:12)
--- NOTE | 2018-03-13 16:30 | PN ---
Teaching Attending Note Name of Resident: Breonna Gardner ATTENDING PHYSICIAN STATEMENT I saw and evaluated the patient. I reviewed the resident's note and discussed the case with the resident. I agree with the resident's findings and plan as documented. SUBJECTIVE:states pain is controlled. feels better than previosuly. denies CP, SOB, fever, chills, N/V/C/D. states he thinks he did have a shovel fall on his leg a little over a week ago. states he has not developed diarrhea. denies CP, SOB, fever, chills, N/V/C/D was on short courses of cipro then doxy then Cefoxidil. appears patient did not complete any courses of abx OBJECTIVE: Last Vital Signs Temp Pulse Resp BP Pulse Ox 98.3 F 76 18 126/75 96 03/13/18 13:04 03/13/18 13:04 03/13/18 13:04 03/13/18 13:04 03/13/18 13:22 General NAD Extremities RLE mid betancourt with 1cm ulcer with dried blood. no active purulent drainage. tender. warm with surrounding erythema, minimal swelling pulse 2 + ASSESSMENT AND PLAN: 82yo M with PMH HTN, dyslipidemia and Basal cell carcinoma s/p MOHS procedure with skin graft presenting with LLE cellulitis 1. LLE celluliits- clinically looks improved (saw picture of leg on admission which was increasing more erythematous and swollen). on vanco/zosyn day 2. CT negative for abscess. seen by surgery and no signs of abscess. awaiting dermatology eval. unclear if Dr Hernadez has privileges here. will reach out to him in AM if he does not come by then. pain control. start bacid to prevent diarrhea 2. +GPC in chains BCX- afebrile. no leukocytosis. possible contamination. will repeat Bcx in the AM 3. HTN- controlled. cont home medications 4. dyslipidemia- statin 5. DVT ppx- lovenox 6. spoke with and daughter present in the room. all questions answered. verbalized understanding and agreement
[2018-03-13] MEDS ORDERED: VANCOMYCIN 1,000 MG in DEXTROSE 5%-WATER - 250 ML IVPB ONE (18:47)
[2018-03-13] MEDS: IBUPROFEN 400 MG TABLET (FP) PO PRN (22:06)
[2018-03-13] MEDS: ATORVASTATIN CA 40 MG TABLET (FP) PO SCH (22:07)
[2018-03-14] MEDS ORDERED: PIPERACILLIN/TAZOBACTAM 3.375 GM VIAL IVPB ONE ×3 (01:29→17:35)
[2018-03-14] MEDS ORDERED: DEXTROSE 5%-WATER - 50 ML IVPB ONE ×3 (01:29→17:35)
[2018-03-14] MEDS: PIPERACILLIN/TAZOB 3.375 GM 3.375 GM in DEXTROSE 5%-WATER - 50 ML IVPB SCH ×3 (02:11→17:41)
[2018-03-14] MEDS: IBUPROFEN 400 MG TABLET (FP) PO PRN ×3 (04:37→21:32)
[2018-03-14 07:35] LABS: HEMATOCRIT 39.2 % (35.4-49); HEMOGLOBIN 13.8 GM/dL (11.7-16.9); MCH 31.6 pg (25.7-33.7); MCHC 35.2 g/dl (32.0-35.9); MEAN CELL VOLUME 89.9 fl (80-96); MEAN PLT VOLUME 7.6 fl (7.5-11.1); PLATELET COUNT 285 K/MM3 (134-434); RBC 4.36 M/mm3 (4.00-5.60); RDW 13.2 % (11.9-15.9); WHITE BLOOD COUNT 6.7 K/mm3 (4.0-10.0)
[2018-03-14 08:04] LABS: ANION GAP 7 MMOL/L (8-16); BLOOD UREA NITROGEN 12 mg/dL (7-18); CHLORIDE 108 mmol/L (98-107); CO2 25 mmol/L (21-32); CREATININE 0.8 mg/dL (0.55-1.3); GLUCOSE,RANDOM 91 mg/dL (74-106); MAGNESIUM 2.2 mg/dL (1.8-2.4); PHOSPHOROUS 3.2 mg/dL (2.5-4.9); POTASSIUM 4.2 mmol/L (3.5-5.1); SODIUM 139 mmol/L (136-145)
--- NOTE | 2018-03-14 08:53 | PN ---
Physical Exam: SUBJECTIVE: Patient seen and examined at bedside- no acute events overnight; patient states that he is doing well and only had slight tenderness upon palpation at the site of the wound. he denies any CP/SOB/N/V fevers or chills OBJECTIVE: Vital Signs Period Temp Pulse Resp BP Sys/Clark Pulse Ox Last 24 Hr 97.7 F-98.3 F 67-77 18-20 113-131/54-90 95-96 GENERAL: The patient is awake, alert, and fully oriented, in no acute distress. EYES: no scleral icterus. NECK: no JVD LUNGS: CTA B/L; no rales, rhonchi or wheezing HEART: Regular rate and rhythm, S1, S2 without murmur, rub or gallop. ABDOMEN: Soft, nontender, nondistended, normoactive bowel sounds, no guarding, no rebound, no hepatosplenomegaly, no masses. EXTREMITIES: RLE anterior betancourt wound; with decreasing erythema , no drainage appreciated. PSYCH: Normal mood, normal affect. SKIN: Warm, dry, normal turgor, no rashes or lesions noted Laboratory Results - last 24 hr 03/14/18 03/14/18 06:00 06:15 WBC 6.7 RBC 4.36 Hgb 13.8 Hct 39.2 MCV 89.9 MCH 31.6 MCHC 35.2 RDW 13.2 Plt Count 285 MPV 7.6 Sodium 139 Potassium 4.2 Chloride 108 H Carbon Dioxide 25 Anion Gap 7 L BUN 12 Creatinine 0.8 Creat Clearance w eGFR > 60 Random Glucose 91 Calcium 8.0 L Phosphorus 3.2 Magnesium 2.2 Active Medications Generic Name Dose Route Start Last Admin Trade Name Cruzq PRN Reason Stop Dose Admin Atorvastatin Calcium 40 mg 03/13/18 22:00 03/13/18 22:07 Lipitor - PO 40 mg HS ISAAC Administration Enoxaparin Sodium 40 mg 03/14/18 10:00 Lovenox - SQ DAILY ISAAC Dextrose/Sodium Chloride 1,000 mls @ 83 mls/hr 03/12/18 19:00 03/13/18 13:03 D5-Ns - IV 83 mls/hr ASDIR ISAAC Administration Piperacillin Sod/Tazobactam 50 mls @ 100 mls/hr 03/13/18 13:00 03/14/18 02:11 Sod 3.375 gm/ Dextrose IVPB 100 mls/hr Q8H-IV ISAAC Administration Protocol Ibuprofen 400 mg 03/13/18 12:35 03/14/18 04:37 Motrin - PO 400 mg Q6H PRN Administration PAIN LEVEL 4 - 6 Lactobacillus Acidophilus 1 tab 03/13/18 15:30 03/13/18 16:12 Bacid - PO 1 tab DAILY ISAAC Administration ASSESSMENT/PLAN: 82 y/o male with PMH of HLD, basal cell carcinoma, chronic bronchitis presents to the ED with worsening RLE swelling, tenderness, pain possible abscess at the excision/graft site #RLE Abscess receieved vanc and zosyn in the ED -day 3 of zosyn -f/u wound cx growing presumptive MSSA -surgery and ID consulted -duplex negative for DVT; CT scan not showing any evidence of abscess or acute pathology -arash Patterson saw pt tody no surgery advised leg elevation with dressing changes BID -will call Dr. Hernadez for any further recs -failed previous abx were: cefoxidil, cipro, doxy #HLD -c/w simvastatin 40mg #BPH -c/w home meds DVT PPX: lovenox (holding in light of possible procedure?) F/E/N D5@83mls/hr monitor BMP sodium controlled diet Problem List - Problems (1) Cellulitis of right lower leg Code(s): L03.115 - CELLULITIS OF RIGHT LOWER LIMB (2) Failure of outpatient treatment Code(s): Z78.9 - OTHER SPECIFIED HEALTH STATUS Visit type - Emergency Visit Emergency Visit: Yes ED Registration Date: 03/12/18 Care time: The patient presented to the Emergency Department on the above date and was hospitalized for further evaluation of their emergent condition. - New Patient This patient is new to me today: No - Critical Care Critical Care patient: No
[2018-03-14] MEDS: LACTOBACILLUS ACIDOPHILUS 1 TABLET PO SCH (09:14)
[2018-03-14] MEDS: ENOXAPARIN NA (PORCINE) 40 MG/0.4 ML DISP.SYRIN SQ SCH (09:14)
--- NOTE | 2018-03-14 12:00 | PN ---
Progress Note, Physician History of Present Illness: doing well wound looking better blood cx result noted - Current Medication List Current Medications: Active Medications Atorvastatin Calcium (Lipitor -) 40 mg PO HS ISAAC Last Admin: 03/13/18 22:07 Dose: 40 mg Enoxaparin Sodium (Lovenox -) 40 mg SQ DAILY ISAAC Last Admin: 03/14/18 09:14 Dose: 40 mg Dextrose/Sodium Chloride (D5-Ns -) 1,000 mls @ 83 mls/hr IV ASDIR ISAAC Last Admin: 03/13/18 13:03 Dose: 83 mls/hr Piperacillin Sod/Tazobactam (Sod 3.375 gm/ Dextrose) 50 mls @ 100 mls/hr IVPB Q8H-IV ISAAC; Protocol Last Admin: 03/14/18 09:13 Dose: 100 mls/hr Ibuprofen (Motrin -) 400 mg PO Q6H PRN PRN Reason: PAIN LEVEL 4 - 6 Last Admin: 03/14/18 11:33 Dose: 400 mg Lactobacillus Acidophilus (Bacid -) 1 tab PO DAILY [facility] Last Admin: 03/14/18 09:14 Dose: 1 tab - Objective Vital Signs: Vital Signs Temperature 98.3 F 03/14/18 09:18 Pulse Rate 60 03/14/18 09:18 Respiratory Rate 18 03/14/18 09:18 Blood Pressure 126/62 03/14/18 09:18 O2 Sat by Pulse Oximetry (%) 95 03/14/18 09:00 Constitutional: Yes: No Distress, Calm Cardiovascular: Yes: Regular Rate and Rhythm Respiratory: Yes: Regular, CTA Bilaterally Gastrointestinal: Yes: Normal Bowel Sounds, Soft Musculoskeletal: Yes: WNL Extremities: Yes: Erythema (much better), Other Wound/Incision: Yes: Dressing Dry and Intact, Dressing Removed Neurological: Yes: Alert, Oriented Psychiatric: Yes: Alert, Oriented Labs: CBC, BMP 03/14/18 06:00 03/14/18 06:15 INR, PTT INR 1.10 (0.83-1.09) H 03/12/18 15:20 Assessment/Plan wound infection cellulitis of the rt leg gm positive bacteremia non healing wound cx result noted plan will continue abx wound care await for repeat cx rest as per the team
[2018-03-14] MEDS: DEXTROSE 5%-NORMAL SALINE 1,000 ML IV SCH (13:26)
--- NOTE | 2018-03-14 17:57 | PN ---
Teaching Attending Note Name of Resident: Breonna Gardner ATTENDING PHYSICIAN STATEMENT I saw and evaluated the patient. I reviewed the resident's note and discussed the case with the resident. I agree with the resident's findings and plan as documented. SUBJECTIVE: Patient reports pain in RLE is improving. OBJECTIVE: Vital Signs Period Temp Pulse Resp BP Sys/Clark Pulse Ox Last 24 Hr 97.5 F-98.3 F 60-77 18-20 112-126/55-62 95 HEART: S1S2, RRR LUNGS: Clear ABDOMEN: Doft, non-tender, non-distended, normal BS EXTREMITIES: No edema, 2.5 cm wound of anterior right betancourt with surrounding swelling and erythema Laboratory Results - last 24 hr 03/14/18 03/14/18 06:00 06:15 WBC 6.7 RBC 4.36 Hgb 13.8 Hct 39.2 MCV 89.9 MCH 31.6 MCHC 35.2 RDW 13.2 Plt Count 285 MPV 7.6 Sodium 139 Potassium 4.2 Chloride 108 H Carbon Dioxide 25 Anion Gap 7 L BUN 12 Creatinine 0.8 Creat Clearance w eGFR > 60 Random Glucose 91 Calcium 8.0 L Phosphorus 3.2 Magnesium 2.2 Current Medications Generic Name Dose Route Start Last Admin Trade Name Freq PRN Reason Stop Dose Admin Atorvastatin Calcium 40 mg 03/13/18 22:00 03/13/18 22:07 Lipitor - PO 40 mg HS ISAAC Administration Enoxaparin Sodium 40 mg 03/14/18 10:00 03/14/18 09:14 Lovenox - SQ 40 mg DAILY ISAAC Administration Dextrose/Sodium Chloride 1,000 mls @ 83 mls/hr 03/12/18 19:00 03/14/18 13:26 D5-Ns - IV 83 mls/hr ASDIR ISAAC Administration Piperacillin Sod/Tazobactam 50 mls @ 100 mls/hr 03/13/18 13:00 03/14/18 17:41 Sod 3.375 gm/ Dextrose IVPB 100 mls/hr Q8H-IV ISAAC Administration Protocol Ibuprofen 400 mg 03/13/18 12:35 03/14/18 11:33 Motrin - PO 400 mg Q6H PRN Administration PAIN LEVEL 4 - 6 Lactobacillus Acidophilus 1 tab 03/13/18 15:30 03/14/18 09:14 Bacid - PO 1 tab DAILY ISAAC Administration ASSESSMENT AND PLAN: This is an 82 year old man with a history of HTN, hyperlipidemia, basal cell carcinoma of RLE s/p Mohs procedure and skin graft who presented to the ED with pain, redness, swelling of his right leg. 1. RLE cellulitis and non-healing wound with possible bacteremia - s/p Mohs procedure and skin graft for BCC 01/30 - Improving - Wound culture growing MSSA - Blood culture #1 growing Strep mitis - Blood culture #2 growing coag neg Staph, alpha hemolytic Strep - Blood cultures repeated - No evidence of abscess - Continue Zosyn - Continue wound care - Vascular eval 2. HTN 3. Hyperlipidemia - Continue Lipitor
[2018-03-14] MEDS: ATORVASTATIN CA 40 MG TABLET (FP) PO SCH (21:32)
[2018-03-15] MEDS ORDERED: PIPERACILLIN/TAZOBACTAM 3.375 GM VIAL IVPB ONE ×4 (01:38→23:56)
[2018-03-15] MEDS ORDERED: DEXTROSE 5%-WATER - 50 ML IVPB ONE ×4 (01:38→23:56)
[2018-03-15] MEDS: PIPERACILLIN/TAZOB 3.375 GM 3.375 GM in DEXTROSE 5%-WATER - 50 ML IVPB SCH ×3 (01:49→17:14)
[2018-03-15] MEDS: IBUPROFEN 400 MG TABLET (FP) PO PRN ×3 (02:40→21:56)
[2018-03-15 07:38] LABS: HEMATOCRIT 39.8 % (35.4-49); HEMOGLOBIN 13.1 GM/dL (11.7-16.9); MCH 29.8 pg (25.7-33.7); MEAN CELL VOLUME 90.4 fl (80-96); MEAN PLT VOLUME 7.6 fl (7.5-11.1); PLATELET COUNT 264 K/MM3 (134-434); RDW 13.4 % (11.9-15.9); WHITE BLOOD COUNT 7.8 K/mm3 (4.0-10.0)
--- NOTE | 2018-03-15 08:27 | PN ---
Physical Exam: SUBJECTIVE: Patient seen and examined at bedside- no acute events overnight; patient states that he had an episode of diarrhea yesterday after eating the parmigana for lunch. he had some slight pain in the leg last night however this morning states the pain is a 2/10- he denies any CP/SOB/N/V fevers or chills OBJECTIVE: Vital Signs Period Temp Pulse Resp BP Sys/Clark Pulse Ox Last 24 Hr 97.5 F-98.3 F 57-87 18-20 104-126/59-62 95 GENERAL: The patient is awake, alert, and fully oriented, in no acute distress. EYES: no scleral icterus . NECK: no JVD, no lympahdenopathy LUNGS: CTA B/L; no rales, rhonchi or wheezing. HEART: Regular rate and rhythm, S1, S2 without murmur, rub or gallop. ABDOMEN: Soft, nontender, nondistended, normoactive bowel sounds, no guarding, no rebound, no hepatosplenomegaly, no masses. EXTREMITIES: RLE cellulitis: diminishing erythema; no active drainage; dressing c/d/i PSYCH: Normal mood, normal affect. SKIN: Warm, dry, normal turgor, no rashes or lesions noted Laboratory Results - last 24 hr 03/15/18 07:00 WBC 7.8 RBC 4.40 Hgb 13.1 Hct 39.8 MCV 90.4 MCH 29.8 MCHC 33.0 RDW 13.4 Plt Count 264 MPV 7.6 Active Medications Generic Name Dose Route Start Last Admin Trade Name Freq PRN Reason Stop Dose Admin Atorvastatin Calcium 40 mg 03/13/18 22:00 03/14/18 21:32 Lipitor - PO 40 mg HS [facility] Administration Enoxaparin Sodium 40 mg 03/14/18 10:00 03/14/18 09:14 Lovenox - SQ 40 mg DAILY [facility] Administration Piperacillin Sod/Tazobactam 50 mls @ 100 mls/hr 03/13/18 13:00 03/15/18 01:49 Sod 3.375 gm/ Dextrose IVPB 100 mls/hr Q8H-IV [facility] Administration Protocol Ibuprofen 400 mg 03/13/18 12:35 03/15/18 02:40 Motrin - PO 400 mg Q6H PRN Administration PAIN LEVEL 4 - 6 Lactobacillus Acidophilus 1 tab 03/13/18 15:30 03/14/18 09:14 Bacid - PO 1 tab DAILY [facility] Administration ASSESSMENT/PLAN: 82 y/o male with PMH of HLD, basal cell carcinoma, chronic bronchitis presents to the ED with worsening RLE swelling, tenderness, pain possible abscess at the excision/graft site #RLE Abscess -wound cx growing presumptive MSSA -day 4 of zosyn -first set of blood cx grew strep mitis, however, repeat from 03/14 showing no growth to date thus far -Bacid on board given patients most recent use of abx -ibuprofen for pain relief -MRI ordered to r/o osteo -santyl dressing -Dr Yanes consulted #HLD -c/w lipitor 40mg #BPH -c/w home meds DVT PPX: lovenox F/E/N not on fluids monitor BMP sodium controlled diet Problem List - Problems (1) Cellulitis of right lower leg Code(s): L03.115 - CELLULITIS OF RIGHT LOWER LIMB (2) Failure of outpatient treatment Code(s): Z78.9 - OTHER SPECIFIED HEALTH STATUS Visit type - Emergency Visit Emergency Visit: Yes ED Registration Date: 03/12/18 Care time: The patient presented to the Emergency Department on the above date and was hospitalized for further evaluation of their emergent condition. - New Patient This patient is new to me today: No - Critical Care Critical Care patient: No
[2018-03-15 08:34] LABS: ANION GAP 8 MMOL/L (8-16); BLOOD UREA NITROGEN 12 mg/dL (7-18); CALCIUM 8.1 mg/dL (8.5-10.1); CHLORIDE 110 mmol/L (98-107); CO2 24 mmol/L (21-32); CREATININE 0.8 mg/dL (0.55-1.3); GLUCOSE,RANDOM 85 mg/dL (74-106); MAGNESIUM 2.1 mg/dL (1.8-2.4); POTASSIUM 4.1 mmol/L (3.5-5.1); SODIUM 141 mmol/L (136-145)
[2018-03-15] MEDS: ENOXAPARIN NA (PORCINE) 40 MG/0.4 ML DISP.SYRIN SQ SCH (09:20)
[2018-03-15] MEDS: LACTOBACILLUS ACIDOPHILUS 1 TABLET PO SCH (09:21)
[2018-03-15] MEDS ORDERED: COLLAGENASE CLOSTRIDIUM HIST. 30 GRAMS TUBE TP SCH (11:30)
--- NOTE | 2018-03-15 11:43 | PN ---
Teaching Attending Note Name of Resident: Breonna Gardner ATTENDING PHYSICIAN STATEMENT I saw and evaluated the patient. I reviewed the resident's note and discussed the case with the resident. I agree with the resident's findings and plan as documented. SUBJECTIVE: Patient has no complaints. OBJECTIVE: Vital Signs Period Temp Pulse Resp BP Sys/Clark Pulse Ox Last 24 Hr 97.5 F-98.1 F 57-87 18-20 104-144/59-93 95 HEART: S1S2, RRR LUNGS: Clear ABDOMEN: Soft, non-tender, non-distended, normal BS EXTREMITIES: No edema, 2.5 cm wound of anterior right betancourt with decreased swelling and erythema Laboratory Results - last 24 hr 03/15/18 03/15/18 07:00 07:00 WBC 7.8 RBC 4.40 Hgb 13.1 Hct 39.8 MCV 90.4 MCH 29.8 MCHC 33.0 RDW 13.4 Plt Count 264 MPV 7.6 Sodium 141 Potassium 4.1 Chloride 110 H Carbon Dioxide 24 Anion Gap 8 BUN 12 Creatinine 0.8 Creat Clearance w eGFR > 60 Random Glucose 85 Calcium 8.1 L Phosphorus 3.0 Magnesium 2.1 Current Medications Generic Name Dose Route Start Last Admin Trade Name Freq PRN Reason Stop Dose Admin Atorvastatin Calcium 40 mg 03/13/18 22:00 03/14/18 21:32 Lipitor - PO 40 mg HS [facility] Administration Collagenase 1 applic 03/15/18 11:30 Santyl - TP DAILY [facility] Protocol Enoxaparin Sodium 40 mg 03/14/18 10:00 03/15/18 09:20 Lovenox - SQ 40 mg DAILY [facility] Administration Piperacillin Sod/Tazobactam 50 mls @ 100 mls/hr 03/13/18 13:00 03/15/18 09:20 Sod 3.375 gm/ Dextrose IVPB 100 mls/hr Q8H-IV [facility] Administration Protocol Ibuprofen 400 mg 03/13/18 12:35 03/15/18 10:03 Motrin - PO 400 mg Q6H PRN Administration PAIN LEVEL 4 - 6 Lactobacillus Acidophilus 1 tab 03/13/18 15:30 03/15/18 09:21 Bacid - PO 1 tab DAILY [facility] Administration ASSESSMENT AND PLAN: This is an 82 year old man with a history of HTN, hyperlipidemia, basal cell carcinoma of RLE s/p Mohs procedure and skin graft who presented to the ED with pain, redness, swelling of his right leg. 1. RLE cellulitis and non-healing wound with Strep mitis bacteremia - s/p Mohs procedure and skin graft for BCC 01/30 - Improving - Wound culture growing MSSA - Blood culture #1 growing Strep mitis - Blood culture #2 growing Strep mitis, coag neg Staph - Repeat blood cultures negative after 24 hours - No evidence of abscess - Continue Zosyn - Vascular input appreciated - Local wound care with Santyl daily - MRI of RLE to eval for osteomyelitis of tibia - Consider hyperbaric oxygen therapy 2. HTN 3. Hyperlipidemia - Continue Lipitor
--- NOTE | 2018-03-15 13:11 | PN ---
Progress Note, Physician History of Present Illness: doing well wound healing able to walk on the leg groin fungal rash - Current Medication List Current Medications: Active Medications Atorvastatin Calcium (Lipitor -) 40 mg PO HS [facility] Last Admin: 03/14/18 21:32 Dose: 40 mg Collagenase (Santyl -) 1 applic TP DAILY [facility]; Protocol Last Admin: 03/15/18 12:58 Dose: 1 applic Enoxaparin Sodium (Lovenox -) 40 mg SQ DAILY [facility] Last Admin: 03/15/18 09:20 Dose: 40 mg Piperacillin Sod/Tazobactam (Sod 3.375 gm/ Dextrose) 50 mls @ 100 mls/hr IVPB Q8H-IV [facility]; Protocol Last Admin: 03/15/18 09:20 Dose: 100 mls/hr Ibuprofen (Motrin -) 400 mg PO Q6H PRN PRN Reason: PAIN LEVEL 4 - 6 Last Admin: 03/15/18 10:03 Dose: 400 mg Lactobacillus Acidophilus (Bacid -) 1 tab PO DAILY [facility] Last Admin: 03/15/18 09:21 Dose: 1 tab - Objective Vital Signs: Vital Signs Temperature 98.1 F 03/15/18 10:00 Pulse Rate 80 03/15/18 10:00 Respiratory Rate 20 03/15/18 10:00 Blood Pressure 144/93 03/15/18 10:00 O2 Sat by Pulse Oximetry (%) 95 03/15/18 09:00 Constitutional: Yes: No Distress, Calm Cardiovascular: Yes: Regular Rate and Rhythm Respiratory: Yes: Regular, CTA Bilaterally Gastrointestinal: Yes: Normal Bowel Sounds, Soft Musculoskeletal: Yes: WNL Extremities: Yes: Erythema (resolved) Wound/Incision: Yes: Dressing Dry and Intact Neurological: Yes: Alert, Oriented Psychiatric: Yes: Alert, Oriented Labs: CBC, BMP 03/15/18 07:00 03/15/18 07:00 INR, PTT INR 1.10 (0.83-1.09) H 03/12/18 15:20 Assessment/Plan wound infection cellulitis of the rt leg gm positive bacteremia non healing wound cx result noted plan will continue abx wound care
[2018-03-15] MEDS: ATORVASTATIN CA 40 MG TABLET (FP) PO SCH (21:52)
[2018-03-16] MEDS: PIPERACILLIN/TAZOB 3.375 GM 3.375 GM in DEXTROSE 5%-WATER - 50 ML IVPB SCH ×3 (01:34→17:55)
[2018-03-16 07:09] LABS: HEMATOCRIT 41.2 % (35.4-49); HEMOGLOBIN 13.9 GM/dL (11.7-16.9); MCH 30.5 pg (25.7-33.7); MCHC 33.7 g/dl (32.0-35.9); MEAN CELL VOLUME 90.4 fl (80-96); MEAN PLT VOLUME 7.6 fl (7.5-11.1); PLATELET COUNT 269 K/MM3 (134-434); RBC 4.56 M/mm3 (4.00-5.60); RDW 13.3 % (11.9-15.9)
[2018-03-16 07:26] LABS: ANION GAP 7 MMOL/L (8-16); BLOOD UREA NITROGEN 15 mg/dL (7-18); CALCIUM 8.3 mg/dL (8.5-10.1); CHLORIDE 109 mmol/L (98-107); CO2 25 mmol/L (21-32); CREATININE 0.8 mg/dL (0.55-1.3); GLUCOSE,RANDOM 83 mg/dL (74-106); MAGNESIUM 2.2 mg/dL (1.8-2.4); POTASSIUM 3.9 mmol/L (3.5-5.1); SODIUM 140 mmol/L (136-145)
[2018-03-16] MEDS ORDERED: DEXTROSE 5%-WATER - 50 ML IVPB ONE ×2 (07:51→17:11)
[2018-03-16] MEDS ORDERED: PIPERACILLIN/TAZOBACTAM 3.375 GM VIAL IVPB ONE ×2 (07:51→17:11)
--- NOTE | 2018-03-16 07:54 | PN ---
Physical Exam: SUBJECTIVE: Patient seen and examined at bedside- patient is now having what appears to be a fungal rash at the beginning of his inner thigh region B/L - he states its slightly itchy however not painful; he is no longer having diarrhea and he feels that his wound is better- he denies any CP/SOB/N/V fevers or chills OBJECTIVE: Vital Signs Period Temp Pulse Resp BP Sys/Clark Pulse Ox Last 24 Hr 97.9 F-98.1 F 64-116 18-20 106-144/48-93 95-95 GENERAL: The patient is awake, alert, and fully oriented, in no acute distress. EYES: no scleral icterus NECK: no JVD no lymphadenopathy LUNGS: CTA B/L; no rales, rhonchi or wheezing HEART: Regular rate and rhythm, S1, S2 without murmur, rub or gallop. ABDOMEN: Soft, nontender, nondistended, normoactive bowel sounds, no guarding, no rebound, no hepatosplenomegaly, no masses. : red rash; non-papular, non -pustular B/L on inner thighs EXTREMITIES: RLE anterior betancourt wound- diminishing erythrma; slight drainage PSYCH: Normal mood, normal affect. SKIN: Warm, dry, normal turgor, no rashes or lesions noted Laboratory Results - last 24 hr 03/15/18 03/15/18 03/16/18 07:00 07:00 06:15 WBC 7.8 9.0 RBC 4.40 4.56 Hgb 13.1 13.9 Hct 39.8 41.2 MCV 90.4 90.4 MCH 29.8 30.5 MCHC 33.0 33.7 RDW 13.4 13.3 Plt Count 264 269 MPV 7.6 7.6 Sodium 141 Potassium 4.1 Chloride 110 H Carbon Dioxide 24 Anion Gap 8 BUN 12 Creatinine 0.8 Creat Clearance w eGFR > 60 Random Glucose 85 Calcium 8.1 L Phosphorus 3.0 Magnesium 2.1 03/16/18 06:15 WBC RBC Hgb Hct MCV MCH MCHC RDW Plt Count MPV Sodium 140 Potassium 3.9 Chloride 109 H Carbon Dioxide 25 Anion Gap 7 L BUN 15 Creatinine 0.8 Creat Clearance w eGFR > 60 Random Glucose 83 Calcium 8.3 L Phosphorus 3.0 Magnesium 2.2 Active Medications Generic Name Dose Route Start Last Admin Trade Name Freq PRN Reason Stop Dose Admin Atorvastatin Calcium 40 mg 03/13/18 22:00 03/15/18 21:52 Lipitor - PO 40 mg HS [facility] Administration Collagenase 1 applic 03/16/18 10:00 Santyl - TP BID [facility] Protocol Enoxaparin Sodium 40 mg 03/14/18 10:00 03/15/18 09:20 Lovenox - SQ 40 mg DAILY [facility] Administration Piperacillin Sod/Tazobactam 50 mls @ 100 mls/hr 03/13/18 13:00 03/16/18 01:34 Sod 3.375 gm/ Dextrose IVPB 100 mls/hr Q8H-IV [facility] Administration Protocol Ibuprofen 400 mg 03/13/18 12:35 03/15/18 21:56 Motrin - PO 400 mg Q6H PRN Administration PAIN LEVEL 4 - 6 Lactobacillus Acidophilus 1 tab 03/13/18 15:30 03/15/18 09:21 Bacid - PO 1 tab DAILY [facility] Administration Nystatin 1 applic 03/16/18 10:00 Mycostatin Ointment - TP BID [facility] ASSESSMENT/PLAN: 82 y/o male with PMH of HLD, basal cell carcinoma, chronic bronchitis presents to the ED with worsening RLE swelling, tenderness, pain possible abscess at the excision/graft site #RLE Abscess -wound cx growing MSSA -day 5 of zosyn; however sensitivities of cx came back - will need to discuss with Dr Nino regarding possible change of abx -first set of blood cx grew strep mitis and stap latigenous as per ID it was likely contaminated so repeat ones were drawn, from 03/14 showing no growth to date thus far (48 hours) -Bacid on board given patients most recent use of abx -ibuprofen for pain relief -MRI done - no evidence of osteomyelitis is seen -santyl dressing BID -Dr Yanes consulted- patient will f/u in his wound care clinic and will also get hyperbaric oxygen therapy given his failed skin graft #Inguinal rash -resembles a fungal type rash likely 2/2 tinea -apply nystatin cream BID to affected area #HLD -c/w lipitor 40mg #BPH -c/w home meds DVT PPX: lovenox Problem List - Problems (1) Cellulitis of right lower leg Code(s): L03.115 - CELLULITIS OF RIGHT LOWER LIMB (2) Failure of outpatient treatment Code(s): Z78.9 - OTHER SPECIFIED HEALTH STATUS Visit type - Emergency Visit Emergency Visit: Yes ED Registration Date: 03/12/18 Care time: The patient presented to the Emergency Department on the above date and was hospitalized for further evaluation of their emergent condition. - New Patient This patient is new to me today: No - Critical Care Critical Care patient: No
[2018-03-16] MEDS: ENOXAPARIN NA (PORCINE) 40 MG/0.4 ML DISP.SYRIN SQ SCH (09:19)
[2018-03-16] MEDS: LACTOBACILLUS ACIDOPHILUS 1 TABLET PO SCH (09:19)
[2018-03-16] MEDS: COLLAGENASE CLOSTRIDIUM HIST. 30 GRAMS TUBE TP SCH ×2 (09:20→21:38)
[2018-03-16] MEDS: NYSTATIN 100000 UNIT/GM TOPICAL OINTMENT 15 GM TUBE TP SCH ×2 (10:50→21:38)
[2018-03-16] MEDS: IBUPROFEN 400 MG TABLET (FP) PO PRN ×2 (10:50→21:56)
--- NOTE | 2018-03-16 13:07 | PN ---
Progress Note, Physician History of Present Illness: patient stable no complains wound healing well - Current Medication List Current Medications: Active Medications Atorvastatin Calcium (Lipitor -) 40 mg PO HS [facility] Last Admin: 03/15/18 21:52 Dose: 40 mg Collagenase (Santyl -) 1 applic TP BID [facility]; Protocol Last Admin: 03/16/18 09:20 Dose: 1 applic Enoxaparin Sodium (Lovenox -) 40 mg SQ DAILY [facility] Last Admin: 03/16/18 09:19 Dose: 40 mg Piperacillin Sod/Tazobactam (Sod 3.375 gm/ Dextrose) 50 mls @ 100 mls/hr IVPB Q8H-IV [facility]; Protocol Last Admin: 03/16/18 09:18 Dose: 100 mls/hr Ibuprofen (Motrin -) 400 mg PO Q6H PRN PRN Reason: PAIN LEVEL 4 - 6 Last Admin: 03/16/18 10:50 Dose: 400 mg Lactobacillus Acidophilus (Bacid -) 1 tab PO DAILY [facility] Last Admin: 03/16/18 09:19 Dose: 1 tab Nystatin (Mycostatin Ointment -) 1 applic TP BID [facility] Last Admin: 03/16/18 10:50 Dose: 1 applic - Objective Vital Signs: Vital Signs Temperature 97.8 F 03/16/18 10:00 Pulse Rate 56 L 03/16/18 10:00 Respiratory Rate 20 03/16/18 10:00 Blood Pressure 124/69 03/16/18 10:00 O2 Sat by Pulse Oximetry (%) 98 03/16/18 09:00 Constitutional: Yes: No Distress, Calm Cardiovascular: Yes: Regular Rate and Rhythm Respiratory: Yes: Regular, CTA Bilaterally Gastrointestinal: Yes: Normal Bowel Sounds, Soft Musculoskeletal: Yes: WNL Extremities: Yes: WNL Wound/Incision: Yes: Dressing Dry and Intact Neurological: Yes: Alert, Oriented Psychiatric: Yes: Alert, Oriented Labs: CBC, BMP 03/16/18 06:15 03/16/18 06:15 INR, PTT INR 1.10 (0.83-1.09) H 03/12/18 15:20 Assessment/Plan wound infection cellulitis of the rt leg gm positive bacteremia non healing wound cx result noted plan will continue abx wound care repeat cx negative rest as per the team
--- NOTE | 2018-03-16 15:55 | PN ---
Teaching Attending Note Name of Resident: Breonna Gardner ATTENDING PHYSICIAN STATEMENT I saw and evaluated the patient. I reviewed the resident's note and discussed the case with the resident. I agree with the resident's findings and plan as documented. SUBJECTIVE: Feels better - no pain. No fever/chills. OBJECTIVE: Afebrile, hemodynamically stable. Last Vital Signs Temp Pulse Resp BP Pulse Ox 98.6 F 58 L 20 140/71 98 03/16/18 14:13 03/16/18 14:13 03/16/18 14:13 03/16/18 14:13 03/16/18 09:00 HEENT - Atraumatic, Normocephalic. Heart - S1, S2, irregular Lungs clear to auscultation Abdomen - soft, non-tender. Bowel Sounds normal. Extremities - no edema. Wound on anterior aspect of RLE with mild purulence and improved surrounding erythema. Laboratory Results - last 24 hr 03/16/18 03/16/18 06:15 06:15 WBC 9.0 RBC 4.56 Hgb 13.9 Hct 41.2 MCV 90.4 MCH 30.5 MCHC 33.7 RDW 13.3 Plt Count 269 MPV 7.6 Sodium 140 Potassium 3.9 Chloride 109 H Carbon Dioxide 25 Anion Gap 7 L BUN 15 Creatinine 0.8 Creat Clearance w eGFR > 60 Random Glucose 83 Calcium 8.3 L Phosphorus 3.0 Magnesium 2.2 Current Medications Generic Name Dose Route Start Last Admin Trade Name Freq PRN Reason Stop Dose Admin Atorvastatin Calcium 40 mg 03/13/18 22:00 03/15/18 21:52 Lipitor - PO 40 mg HS [facility] Administration Collagenase 1 applic 03/16/18 10:00 03/16/18 09:20 Santyl - TP 1 applic BID [facility] Administration Protocol Enoxaparin Sodium 40 mg 03/14/18 10:00 03/16/18 09:19 Lovenox - SQ 40 mg DAILY [facility] Administration Piperacillin Sod/Tazobactam 50 mls @ 100 mls/hr 03/13/18 13:00 03/16/18 09:18 Sod 3.375 gm/ Dextrose IVPB 100 mls/hr Q8H-IV [facility] Administration Protocol Ibuprofen 400 mg 03/13/18 12:35 03/16/18 10:50 Motrin - PO 400 mg Q6H PRN Administration PAIN LEVEL 4 - 6 Lactobacillus Acidophilus 1 tab 03/13/18 15:30 03/16/18 09:19 Bacid - PO 1 tab DAILY [facility] Administration Nystatin 1 applic 03/16/18 10:00 03/16/18 10:50 Mycostatin Ointment - TP 1 applic BID [facility] Administration ASSESSMENT AND PLAN: 82 year old male with a HTN, HLD, basal cell carcinoma of RLE s/p MOHS procedure and skin graft who presented to the ED with pain, redness, swelling of his right leg found to have graft failure and infection of wound with surrounding cellulitis. 1. RLE cellulitis/non-healing wound s/p MOHS for BCC 01/30 Associated Strep mitis bacteremia - Wound culture growing MSSA - Blood culture #1 growing Strep mitis - Blood culture #2 growing Strep mitis, coag neg Staph Repeat blood cultures negative. Wound improving. MRI negative for Osteomyelitis. Continue Zosyn - Day 4. ID following. Wound Care with Santyl twice daily. For ongoing wound care and consideration of hyperbaric oxygen therapy on discharge. 2. HTN - normally on Terazosin at home. Will resume. 3. Hyperlipidemia - Continue Lipitor. DVT Px - Lovenox SQ.
[2018-03-16] MEDS: ATORVASTATIN CA 40 MG TABLET (FP) PO SCH (21:38)
[2018-03-17] MEDS ORDERED: PIPERACILLIN/TAZOBACTAM 3.375 GM VIAL IVPB ONE ×3 (02:22→17:22)
[2018-03-17] MEDS ORDERED: DEXTROSE 5%-WATER - 50 ML IVPB ONE ×3 (02:22→17:23)
[2018-03-17] MEDS: PIPERACILLIN/TAZOB 3.375 GM 3.375 GM in DEXTROSE 5%-WATER - 50 ML IVPB SCH ×3 (02:32→17:39)
[2018-03-17 07:10] LABS: BASO % 0.3 % (0-2.0); EOS % 4.6 % (0-4.5); HEMATOCRIT 40.6 % (35.4-49); HEMOGLOBIN 14.2 GM/dL (11.7-16.9); LYMPH % 15.4 % (8-40); MCH 31.6 pg (25.7-33.7); MEAN CELL VOLUME 90.1 fl (80-96); MONO % 5.4 % (3.8-10.2); NEUT % 74.3 % (42.8-82.8); PLATELET COUNT 291 K/MM3 (134-434); RBC 4.51 M/mm3 (4.00-5.60); RDW 13.2 % (11.9-15.9)
[2018-03-17 07:51] LABS: ANION GAP 7 MMOL/L (8-16); BLOOD UREA NITROGEN 18 mg/dL (7-18); CALCIUM 8.6 mg/dL (8.5-10.1); CHLORIDE 106 mmol/L (98-107); CO2 26 mmol/L (21-32); CREATININE 0.8 mg/dL (0.55-1.3); GLUCOSE,RANDOM 73 mg/dL (74-106); MAGNESIUM 2.1 mg/dL (1.8-2.4); PHOSPHOROUS 3.5 mg/dL (2.5-4.9); SODIUM 139 mmol/L (136-145)
[2018-03-17] MEDS ORDERED: PT OWN MED DRAWER 7, Y5N ONE (08:56)
[2018-03-17] MEDS: LACTOBACILLUS ACIDOPHILUS 1 TABLET PO SCH (10:01)
[2018-03-17] MEDS: ENOXAPARIN NA (PORCINE) 40 MG/0.4 ML DISP.SYRIN SQ SCH (10:02)
[2018-03-17] MEDS: COLLAGENASE CLOSTRIDIUM HIST. 30 GRAMS TUBE TP SCH ×2 (10:12→21:21)
[2018-03-17] MEDS: NYSTATIN 100000 UNIT/GM TOPICAL OINTMENT 15 GM TUBE TP SCH ×2 (10:12→21:21)
--- NOTE | 2018-03-17 14:01 | PN ---
Progress Note, Physician History of Present Illness: doing well wound healing able to walk on the leg groin fungal rash - Current Medication List Current Medications: Active Medications Atorvastatin Calcium (Lipitor -) 40 mg PO HS [facility] Last Admin: 03/16/18 21:38 Dose: 40 mg Collagenase (Santyl -) 1 applic TP BID [facility]; Protocol Last Admin: 03/17/18 10:12 Dose: 1 applic Enoxaparin Sodium (Lovenox -) 40 mg SQ DAILY [facility] Last Admin: 03/17/18 10:02 Dose: 40 mg Piperacillin Sod/Tazobactam (Sod 3.375 gm/ Dextrose) 50 mls @ 100 mls/hr IVPB Q8H-IV [facility]; Protocol Last Admin: 03/17/18 10:01 Dose: 100 mls/hr Ibuprofen (Motrin -) 400 mg PO Q6H PRN PRN Reason: PAIN LEVEL 4 - 6 Last Admin: 03/16/18 21:56 Dose: 400 mg Lactobacillus Acidophilus (Bacid -) 1 tab PO DAILY [facility] Last Admin: 03/17/18 10:01 Dose: 1 tab Nystatin (Mycostatin Ointment -) 1 applic TP BID [facility] Last Admin: 03/17/18 10:12 Dose: 1 applic - Objective Vital Signs: Vital Signs Temperature 98.1 F 03/17/18 13:52 Pulse Rate 70 03/17/18 13:52 Respiratory Rate 20 03/17/18 13:52 Blood Pressure 106/57 L 03/17/18 13:52 O2 Sat by Pulse Oximetry (%) 95 03/17/18 09:00 Constitutional: Yes: No Distress, Calm Cardiovascular: Yes: Regular Rate and Rhythm Respiratory: Yes: Regular, CTA Bilaterally Gastrointestinal: Yes: Normal Bowel Sounds, Soft Musculoskeletal: Yes: WNL Extremities: Yes: WNL Wound/Incision: Yes: Dressing Dry and Intact Neurological: Yes: Alert, Oriented Psychiatric: Yes: Alert, Oriented Labs: CBC, BMP 03/17/18 06:00 03/17/18 06:00 INR, PTT INR 1.10 (0.83-1.09) H 03/12/18 15:20 Assessment/Plan wound infection cellulitis of the rt leg gm positive bacteremia non healing wound cx result noted plan will continue abx wound care repeat blood cx negative patient doing well
--- NOTE | 2018-03-17 14:45 | PN ---
Progress Note (short form) - Note Progress Note: Feels well. No fever/chills. Ambulating without difficulty. PHYSICAL EXAMINATION Afebrile, Hemodynamically Stable. Last Vital Signs Temp Pulse Resp BP Pulse Ox 98.1 F 70 20 106/57 L 95 03/17/18 13:52 03/17/18 13:52 03/17/18 13:52 03/17/18 13:52 03/17/18 09:00 Neuro - AAOx3 Heart - S1,S2,regular Lungs - clear to auscultation Abdomen- Soft, non-tender. Bowel Sounds normal. Extremities - mild erythema and mild purulence from ulceration on R LE. Laboratory Results - last 24 hr 03/17/18 03/17/18 06:00 06:00 WBC 8.0 RBC 4.51 Hgb 14.2 Hct 40.6 MCV 90.1 MCH 31.6 MCHC 35.0 RDW 13.2 Plt Count 291 MPV 8.0 Absolute Neuts (auto) 5.9 Neutrophils % 74.3 Lymphocytes % 15.4 Monocytes % 5.4 Eosinophils % 4.6 H D Basophils % 0.3 Nucleated RBC % 0 Sodium 139 Potassium 4.0 Chloride 106 Carbon Dioxide 26 Anion Gap 7 L BUN 18 Creatinine 0.8 Creat Clearance w eGFR > 60 Random Glucose 73 L Calcium 8.6 Phosphorus 3.5 Magnesium 2.1 Current Medications Generic Name Dose Route Start Last Admin Trade Name Freq PRN Reason Stop Dose Admin Atorvastatin Calcium 40 mg 03/13/18 22:00 03/16/18 21:38 Lipitor - PO 40 mg HS [facility] Administration Collagenase 1 applic 03/16/18 10:00 03/17/18 10:12 Santyl - TP 1 applic BID [facility] Administration Protocol Enoxaparin Sodium 40 mg 03/14/18 10:00 03/17/18 10:02 Lovenox - SQ 40 mg DAILY [facility] Administration Piperacillin Sod/Tazobactam 50 mls @ 100 mls/hr 03/13/18 13:00 03/17/18 10:01 Sod 3.375 gm/ Dextrose IVPB 100 mls/hr Q8H-IV [facility] Administration Protocol Ibuprofen 400 mg 03/13/18 12:35 03/16/18 21:56 Motrin - PO 400 mg Q6H PRN Administration PAIN LEVEL 4 - 6 Lactobacillus Acidophilus 1 tab 03/13/18 15:30 03/17/18 10:01 Bacid - PO 1 tab DAILY [facility] Administration Nystatin 1 applic 03/16/18 10:00 03/17/18 10:12 Mycostatin Ointment - TP 1 applic BID [facility] Administration ASSESSMENT AND PLAN: 82 year old male with a HTN, HLD, basal cell carcinoma of RLE s/p MOHS procedure and skin graft who presented to the ED with pain, redness, swelling of his right leg found to have graft failure and infection of wound with surrounding cellulitis. 1. RLE cellulitis/non-healing wound s/p MOHS for BCC 01/30 - Associated Strep mitis bacteremia - Wound culture growing MSSA - Blood culture #1 growing Strep mitis - Blood culture #2 growing Strep mitis, coag neg Staph Repeat blood cultures negative. Wound improving - now mild surrounding erythema and some discharge MRI negative for Osteomyelitis. Continue Zosyn - Day 5. ID following. Wound Care with Santyl twice daily. For ongoing wound care and consideration of hyperbaric oxygen therapy on discharge. 2. HTN - normally on Terazosin at home. Will resume. 3. Hyperlipidemia - Continue Atorvastatin. DVT Px - Lovenox SQ. Visit type - Emergency Visit Emergency Visit: Yes ED Registration Date: 03/12/18 Care time: The patient presented to the Emergency Department on the above date and was hospitalized for further evaluation of their emergent condition. - New Patient This patient is new to me today: No - Critical Care Critical Care patient: No - Discharge Referral Referred to [facility] Med [facility] No
[2018-03-17] MEDS: ASPIRIN 81 MG CHEWABLE TABLETS PO SCH (17:38)
[2018-03-17] MEDS: ATORVASTATIN CA 40 MG TABLET (FP) PO SCH (21:20)
[2018-03-17] MEDS: TERAZOSIN HCL 5 MG CAPSULE PO SCH (21:20)
[2018-03-18] MEDS ORDERED: PIPERACILLIN/TAZOBACTAM 3.375 GM VIAL IVPB ONE ×3 (00:02→16:39)
[2018-03-18] MEDS ORDERED: DEXTROSE 5%-WATER - 50 ML IVPB ONE ×3 (00:02→16:39)
[2018-03-18] MEDS: PIPERACILLIN/TAZOB 3.375 GM 3.375 GM in DEXTROSE 5%-WATER - 50 ML IVPB SCH ×3 (01:26→17:42)
[2018-03-18] MEDS ORDERED: PT OWN MED DRAWER 7, Y5N ONE (08:48)
[2018-03-18] MEDS: LACTOBACILLUS ACIDOPHILUS 1 TABLET PO SCH (09:23)
[2018-03-18] MEDS: ASPIRIN 81 MG CHEWABLE TABLETS PO SCH (09:23)
[2018-03-18] MEDS: ENOXAPARIN NA (PORCINE) 40 MG/0.4 ML DISP.SYRIN SQ SCH (09:23)
[2018-03-18] MEDS: COLLAGENASE CLOSTRIDIUM HIST. 30 GRAMS TUBE TP SCH ×2 (09:33→21:38)
[2018-03-18] MEDS: NYSTATIN 100000 UNIT/GM TOPICAL OINTMENT 15 GM TUBE TP SCH ×2 (09:34→21:38)
--- NOTE | 2018-03-18 13:13 | PN ---
Progress Note, Physician History of Present Illness: doing well wound healing able to walk on the leg - Current Medication List Current Medications: Active Medications Aspirin (Asa -) 81 mg PO DAILY [facility] Last Admin: 03/18/18 09:23 Dose: 81 mg Atorvastatin Calcium (Lipitor -) 40 mg PO HS [facility] Last Admin: 03/17/18 21:20 Dose: 40 mg Collagenase (Santyl -) 1 applic TP BID [facility]; Protocol Last Admin: 03/18/18 09:33 Dose: 1 applic Enoxaparin Sodium (Lovenox -) 40 mg SQ DAILY [facility] Last Admin: 03/18/18 09:23 Dose: 40 mg Piperacillin Sod/Tazobactam (Sod 3.375 gm/ Dextrose) 50 mls @ 100 mls/hr IVPB Q8H-IV [facility]; Protocol Last Admin: 03/18/18 09:34 Dose: 100 mls/hr Lactobacillus Acidophilus (Bacid -) 1 tab PO DAILY [facility] Last Admin: 03/18/18 09:23 Dose: 1 tab Nystatin (Mycostatin Ointment -) 1 applic TP BID [facility] Last Admin: 03/18/18 09:34 Dose: 1 applic Terazosin HCl (Hytrin -) 10 mg PO HS [facility] Last Admin: 03/17/18 21:20 Dose: 10 mg - Objective Vital Signs: Vital Signs Temperature 97.5 F L 03/18/18 09:13 Pulse Rate 75 03/18/18 09:13 Respiratory Rate 18 03/18/18 09:13 Blood Pressure 102/50 L 03/18/18 09:13 O2 Sat by Pulse Oximetry (%) 97 03/18/18 09:00 Constitutional: Yes: No Distress, Calm Gastrointestinal: Yes: Normal Bowel Sounds Musculoskeletal: Yes: WNL Extremities: Yes: Other Wound/Incision: Yes: Dressing Dry and Intact Neurological: Yes: Alert, Oriented Psychiatric: Yes: Alert, Oriented Labs: CBC, BMP 03/17/18 06:00 03/17/18 06:00 INR, PTT INR 1.10 (0.83-1.09) H 03/12/18 15:20 Assessment/Plan wound infection cellulitis of the rt leg gm positive bacteremia non healing wound cx result noted plan will continue abx tomorrow last day of iv abx then will switch to oral rest as per the team
--- NOTE | 2018-03-18 14:20 | PN ---
Physical Exam: SUBJECTIVE: Patient seen and examined at bed side , no acute events over night , he had one episode of light headedness when he get to go to bath room. denies nay fever, chills, N/V/D/C, wound is improving , and inguinal tinea less itchy. OBJECTIVE: Vital Signs Period Temp Pulse Resp BP Sys/Clark Pulse Ox Last 24 Hr 97.5 F-98.4 F 54-80 18-20 102-144/50-76 95-97 GENERAL: The patient is awake, alert, and fully oriented, in no acute distress. EYES: no scleral icterus NECK: no JVD no lymphadenopathy LUNGS: CTA B/L; no rales, rhonchi or wheezing HEART: Regular rate and rhythm, S1, S2 without murmur, rub or gallop. ABDOMEN: Soft, nontender, nondistended, normoactive bowel sounds, no guarding, no rebound, no hepatosplenomegaly, no masses. : red rash; non-papular, non -pustular B/L on inner thighs EXTREMITIES: RLE anterior betancourt wound- diminishing erythrma; slight drainage PSYCH: Normal mood, normal affect. SKIN: Warm, dry, normal turgor, no rashes or lesions noted Active Medications Generic Name Dose Route Start Last Admin Trade Name Cruzq PRN Reason Stop Dose Admin Aspirin 81 mg 03/17/18 14:45 03/18/18 09:23 Asa - PO 81 mg DAILY ISAAC Administration Atorvastatin Calcium 40 mg 03/13/18 22:00 03/17/18 21:20 Lipitor - PO 40 mg HS ISAAC Administration Collagenase 1 applic 03/16/18 10:00 03/18/18 09:33 Santyl - TP 1 applic BID ISAAC Administration Protocol Enoxaparin Sodium 40 mg 03/14/18 10:00 03/18/18 09:23 Lovenox - SQ 40 mg DAILY ISAAC Administration Piperacillin Sod/Tazobactam 50 mls @ 100 mls/hr 03/13/18 13:00 03/18/18 09:34 Sod 3.375 gm/ Dextrose IVPB 100 mls/hr Q8H-IV ISAAC Administration Protocol Lactobacillus Acidophilus 1 tab 03/13/18 15:30 03/18/18 09:23 Bacid - PO 1 tab DAILY ISAAC Administration Nystatin 1 applic 03/16/18 10:00 03/18/18 09:34 Mycostatin Ointment - TP 1 applic BID ISAAC Administration Terazosin HCl 10 mg 03/17/18 22:00 03/17/18 21:20 Hytrin - PO 10 mg HS ISAAC Administration CBC, BMP 03/17/18 06:00 03/17/18 06:00 ASSESSMENT/PLAN: 82 y/o male with PMH of HLD, basal cell carcinoma, chronic bronchitis presents to the ED with worsening RLE swelling, tenderness, pain possible abscess at the excision/graft site #RLE Abscess * wound cx growing MSSA * day 7of zosyn; tomorrow is last day of IV abx per Pippa , he will switch him to oral Augmentin as out pt * first set of blood cx grew strep mitis and stap latigenous as per ID it was likely contaminated so repeat ones were drawn, from 03/14 showing no growth to date thus far (48 hours) * Bacid on board given patients most recent use of abx * ibuprofen for pain relief * MRI done with no evidence of osteomyelitis is seen * santyl dressing BID * wound care and hyperbaric as out pt #Inguinal rash * likley tinea * nystatin cream BID topical to affected area #HLD * c/w lipitor 40mg #BPH * c/w home meds #DVT PPX: lovenox # Dispo * DC home on Monday after last dose of IV abx Visit type - Emergency Visit Emergency Visit: Yes ED Registration Date: 03/12/18 Care time: The patient presented to the Emergency Department on the above date and was hospitalized for further evaluation of their emergent condition. - New Patient This patient is new to me today: No - Critical Care Critical Care patient: No - Discharge Referral Referred to [facility] No
--- NOTE | 2018-03-18 16:27 | PN ---
Teaching Attending Note Name of Resident: Basil Castillo ATTENDING PHYSICIAN STATEMENT I saw and evaluated the patient. I reviewed the resident's note and discussed the case with the resident. I agree with the resident's findings and plan as documented. SUBJECTIVE: Feeling well. complains of some lightheadedness overnight - momentary - no nausea, vomiting, syncope, fall. Now resolved. No fever/chills. OBJECTIVE: Afebrile/hemodynamically stable. Last Vital Signs Temp Pulse Resp BP Pulse Ox 97.6 F 80 20 112/60 97 03/18/18 13:29 03/18/18 13:29 03/18/18 13:29 03/18/18 13:29 03/18/18 09:00 Neuro - AAO x 3. Tone/Power normal all 4 extremities. HEENT - Atraumatic/Nornocephalic. No pharyngeal erythema/exudate Heart - S1, S2, irregular Lungs - clear to auscultation Abdomen - Soft, non-tender. Extremities - RLE: ulcer dressed. less discharge, less tenderness. Current Medications Generic Name Dose Route Start Last Admin Trade Name Cruzq PRN Reason Stop Dose Admin Aspirin 81 mg 03/17/18 14:45 03/18/18 09:23 Asa - PO 81 mg DAILY ISAAC Administration Atorvastatin Calcium 40 mg 03/13/18 22:00 03/17/18 21:20 Lipitor - PO 40 mg HS ISAAC Administration Collagenase 1 applic 03/16/18 10:00 03/18/18 09:33 Santyl - TP 1 applic BID ISAAC Administration Protocol Enoxaparin Sodium 40 mg 03/14/18 10:00 03/18/18 09:23 Lovenox - SQ 40 mg DAILY ISAAC Administration Piperacillin Sod/Tazobactam 50 mls @ 100 mls/hr 03/13/18 13:00 03/18/18 09:34 Sod 3.375 gm/ Dextrose IVPB 100 mls/hr Q8H-IV ISAAC Administration Protocol Lactobacillus Acidophilus 1 tab 03/13/18 15:30 03/18/18 09:23 Bacid - PO 1 tab DAILY ISAAC Administration Nystatin 1 applic 03/16/18 10:00 03/18/18 09:34 Mycostatin Ointment - TP 1 applic BID ISAAC Administration Terazosin HCl 10 mg 03/17/18 22:00 03/17/18 21:20 Hytrin - PO 10 mg HS ISAAC Administration ASSESSMENT AND PLAN: 82 year old male with a HTN, HLD, basal cell carcinoma of RLE s/p MOHS procedure and skin graft who presented to the ED with pain, redness, swelling of his right leg found to have graft failure and infection of wound with surrounding cellulitis. 1. RLE cellulitis/non-healing wound s/p MOHS for BCC 01/30 - Associated Strep mitis bacteremia - Wound culture growing MSSA - Blood culture #1 growing Strep mitis - Blood culture #2 growing Strep mitis, coag neg Staph Repeat blood cultures negative x2. Wound improving - Wound Care with Santyl twice daily. MRI negative for Osteomyelitis. Continue Zosyn - Day 7. ID following. For conversion to oral antibiotic Augmentin and discharge tomorrow. For ongoing wound care and consideration of hyperbaric oxygen therapy on discharge. 2. HTN - normally on Terazosin at home - resumed. 3. Hyperlipidemia - Continue Atorvastatin. DVT Px - Lovenox SQ.
[2018-03-18] MEDS: TERAZOSIN HCL 5 MG CAPSULE PO SCH (21:37)
[2018-03-18] MEDS: ATORVASTATIN CA 40 MG TABLET (FP) PO SCH (21:37)
[2018-03-18] MEDS ORDERED: ACETAMINOPHEN 325 MG TABLET (FP) PO PRN (23:44)
[2018-03-19] MEDS ORDERED: PIPERACILLIN/TAZOBACTAM 3.375 GM VIAL IVPB ONE ×3 (00:13→14:15)
[2018-03-19] MEDS ORDERED: DEXTROSE 5%-WATER - 50 ML IVPB ONE ×3 (00:13→14:15)
[2018-03-19] MEDS: PIPERACILLIN/TAZOB 3.375 GM 3.375 GM in DEXTROSE 5%-WATER - 50 ML IVPB SCH ×3 (01:16→16:58)
[2018-03-19] MEDS: LACTOBACILLUS ACIDOPHILUS 1 TABLET PO SCH (09:33)
[2018-03-19] MEDS: ENOXAPARIN NA (PORCINE) 40 MG/0.4 ML DISP.SYRIN SQ SCH (09:33)
[2018-03-19] MEDS: ASPIRIN 81 MG CHEWABLE TABLETS PO SCH (09:33)
[2018-03-19] MEDS: NYSTATIN 100000 UNIT/GM TOPICAL OINTMENT 15 GM TUBE TP SCH (09:37)
[2018-03-19] MEDS: COLLAGENASE CLOSTRIDIUM HIST. 30 GRAMS TUBE TP SCH (09:38)
--- NOTE | 2018-03-19 11:00 | PN ---
Progress Note, Physician History of Present Illness: patient doing well no issues - Current Medication List Current Medications: Active Medications Acetaminophen (Tylenol -) 650 mg PO Q4H PRN PRN Reason: PAIN LEVEL 6-10 Last Admin: 03/19/18 01:20 Dose: 650 mg Aspirin (Asa -) 81 mg PO DAILY [facility] Last Admin: 03/19/18 09:33 Dose: 81 mg Atorvastatin Calcium (Lipitor -) 40 mg PO HS [facility] Last Admin: 03/18/18 21:37 Dose: 40 mg Collagenase (Santyl -) 1 applic TP BID ISAAC; Protocol Last Admin: 03/19/18 09:38 Dose: 1 applic Enoxaparin Sodium (Lovenox -) 40 mg SQ DAILY [facility] Last Admin: 03/19/18 09:33 Dose: 40 mg Piperacillin Sod/Tazobactam (Sod 3.375 gm/ Dextrose) 50 mls @ 100 mls/hr IVPB Q8H-IV [facility]; Protocol Last Admin: 03/19/18 09:34 Dose: 100 mls/hr Lactobacillus Acidophilus (Bacid -) 1 tab PO DAILY [facility] Last Admin: 03/19/18 09:33 Dose: 1 tab Nystatin (Mycostatin Ointment -) 1 applic TP BID [facility] Last Admin: 03/19/18 09:37 Dose: 1 applic Terazosin HCl (Hytrin -) 10 mg PO HS [facility] Last Admin: 03/18/18 21:37 Dose: 10 mg - Objective Vital Signs: Vital Signs Temperature 97.8 F 03/19/18 08:21 Pulse Rate 98 H 03/19/18 08:21 Respiratory Rate 18 03/19/18 09:00 Blood Pressure 117/73 03/19/18 08:21 O2 Sat by Pulse Oximetry (%) 98 03/19/18 09:00 Constitutional: Yes: No Distress, Calm Cardiovascular: Yes: Regular Rate and Rhythm Respiratory: Yes: Regular, CTA Bilaterally Gastrointestinal: Yes: Normal Bowel Sounds, Soft Musculoskeletal: Yes: WNL Extremities: Yes: WNL Wound/Incision: Yes: Dressing Dry and Intact, Dressing Removed, Other (wound healing well) Neurological: Yes: Alert, Oriented Psychiatric: Yes: Alert, Oriented Labs: CBC, BMP 03/17/18 06:00 03/17/18 06:00 INR, PTT INR 1.10 (0.83-1.09) H 03/12/18 15:20 Assessment/Plan wound infection cellulitis of the rt leg gm positive bacteremia non healing wound cx result noted plan can change abx to oral augmentin 875 mg po bid after the last dose today to be given for another 10 days wound care hyperbaric rest as per the team
[2018-03-19 14:00] VITALS: BP 118/73; PULSE 72; TEMP 97.5
--- NOTE | 2018-03-19 14:20 | PN ---
Teaching Attending Note Name of Resident: Mira Harper ATTENDING PHYSICIAN STATEMENT I saw and evaluated the patient. I reviewed the resident's note and discussed the case with the resident. I agree with the resident's findings and plan as documented. SUBJECTIVE: Feels well - no LE pain. No fever/chills. OBJECTIVE: Afebrile/Hemodynamically Stable Last Vital Signs Temp Pulse Resp BP Pulse Ox 97.5 F L 72 20 118/73 98 03/19/18 13:58 03/19/18 13:58 03/19/18 13:58 03/19/18 13:58 03/19/18 09:00 HEENT - Atraumatic, Normocephalic Heart - S1, S2, irregular Lungs - clear to auscultation Abdomen - soft, non-tender. Bowel Sounds normal. Extremities - RLE ulceration dorsal aspect (betancourt) with improved edema, purulence , and tenderness. Current Medications Generic Name Dose Route Start Last Admin Trade Name Freq PRN Reason Stop Dose Admin Acetaminophen 650 mg 03/18/18 23:44 03/19/18 01:20 Tylenol - PO 650 mg Q4H PRN Administration PAIN LEVEL 6-10 Aspirin 81 mg 03/17/18 14:45 03/19/18 09:33 Asa - PO 81 mg DAILY ISAAC Administration Atorvastatin Calcium 40 mg 03/13/18 22:00 03/18/18 21:37 Lipitor - PO 40 mg HS ISAAC Administration Collagenase 1 applic 03/16/18 10:00 03/19/18 09:38 Santyl - TP 1 applic BID ISAAC Administration Protocol Enoxaparin Sodium 40 mg 03/14/18 10:00 03/19/18 09:33 Lovenox - SQ 40 mg DAILY ISAAC Administration Piperacillin Sod/Tazobactam 50 mls @ 100 mls/hr 03/13/18 13:00 03/19/18 09:34 Sod 3.375 gm/ Dextrose IVPB 100 mls/hr Q8H-IV ISAAC Administration Protocol Lactobacillus Acidophilus 1 tab 03/13/18 15:30 03/19/18 09:33 Bacid - PO 1 tab DAILY ISAAC Administration Nystatin 1 applic 03/16/18 10:00 03/19/18 09:37 Mycostatin Ointment - TP 1 applic BID ISAAC Administration Terazosin HCl 10 mg 03/17/18 22:00 03/18/18 21:37 Hytrin - PO 10 mg HS ISAAC Administration ASSESSMENT AND PLAN: 82 year old male with a HTN, HLD, basal cell carcinoma of RLE s/p MOHS procedure and skin graft who presented to the ED with pain, redness, swelling of his right leg found to have graft failure and infection of wound with surrounding cellulitis. 1. RLE cellulitis/non-healing wound and graft failure s/p MOHS for BCC 01/30 - Associated Strep mitis bacteremia - Wound culture growing MSSA Repeat blood cultures negative x2. Wound improving - Wound Care with Santyl to continue at home. MRI negative for Osteomyelitis. Afebrile, Hemodynamically Stable. Completed 7 days of Zosyn. Medically stable for discharge on 10 additional days of Augmentin with home wound care by visiting nurse and out-patient wound care with Dr. Yanes who will see the patient on Monday at 9am and arrange for Hyperbaric Oxygen. Plan discussed with Dr. Yanes and relayed to patient and family. 2. HTN - Continue Terazosin. 3. Hyperlipidemia - Continue Atorvastatin.
--- NOTE | 2018-03-19 15:18 | DS ---
Physical Exam: SUBJECTIVE: Patient seen and examined. No acute events overnight. Offers no complaints. Denies fevers, chills, nausea and vomiting. OBJECTIVE: Vital Signs Period Temp Pulse Resp BP Sys/Clark Pulse Ox Last 24 Hr 97.5 F-98.6 F 48-98 18-20 105-118/62-73 97-98 PHYSICAL EXAM GENERAL: The patient is awake, alert, and fully oriented, in no acute distress. EYES: PERRL, extraocular movements intact ENT: oropharynx clear without exudates, moist mucous membranes. NECK: supple. LUNGS: clear to auscultation bilaterally HEART: RRR, no MGR ABDOMEN: Soft, nontender, nondistended, normoactive bowel sounds EXTREMITIES: RLE ulceration dorsal aspect (betancourt) with improved edema, purulence , and tenderness. NEUROLOGICAL: Cranial nerves II through XII grossly intact LABS HOSPITAL COURSE: Date of Admission:03/12/18 #RLE Cellullitis * wound cx growing MSSA * day 8 of zosyn; switch to Augmentin 850 BID for 10 more days. * Bacid on board given patients most recent use of abx * ibuprofen for pain relief * MRI done with no evidence of osteomyelitis is seen * santyl dressing BID * wound care and hyperbaric as out pt #HLD * c/w lipitor 40mg #BPH * c/w home meds # Dispo * Mecically cleared for discharge Date of Discharge: 03/19/18 Minutes to complete discharge: 35 Discharge Summary Reason For Visit: CELLULITITS OF RIGHT LOWER LEG Current Active Problems Cellulitis of right lower leg (Acute) Failure of outpatient treatment (Acute) Condition: Improved - Instructions Diet, Activity, Other Instructions: You were admitted because of the wound/infection of your lower extremity. You were treated with antibiotics for a week. You will need to continue oral antibiotics for 7 more days. You will need to take Augmentin 875mg twice a day for 10 days. We have scheduled a wound care appointment with Dr. Yanes on 03/23/18 at 9am. You will need to discuss Hyperbaric treatment with Dr. Yanes. Also you will need to follow up with your primary care doctor in 1 week. Referrals: Kane Yanes MD [Staff Physician] - 03/23/18 9:00 am Samson Qiu MD [Primary Care Provider] - 1 Week Disposition: VNS/HOME HEALTH CARE - Home Medications Comprehensive Discharge Medication List: Ambulatory Orders Aspirin [ASA -] 81 mg PO DAILY 03/12/18 Simvastatin [Zocor -] 40 mg PO HS 03/12/18 Terazosin HCl 10 mg PO DAILY 03/12/18 Amoxicillin/Potassium Clav [Augmentin 875-125 Tablet] 1 each PO BID #20 tablet 03/19/18 Collagenase Clostridium Hist. [Santyl -] 1 applic TP BID #1 tube 03/19/18 Nystatin Ointment [Mycostatin Ointment -] 1 applic TP BID #1 applic 03/19/18 This patient is new to me today: Yes Date on this admission: 03/19/18 Emergency Visit: Yes ED Registration Date: 03/12/18 Care time: The patient presented to the Emergency Department on the above date and was hospitalized for further evaluation of their emergent condition. Critical Care patient: No - Discharge Referral Referred to [facility] No
== END 2018-03-19 18:11 | disposition home health service (06) | DRG 863 ==
LOC: JER 13:23 → JERBED 19:38 → J7W 03-13 12:03
PROVIDERS: ADMIT Hospitalist
DX: T81.40XA Infection following a procedure, unspecified, initial encounter (principal); L03.115 Cellulitis of right lower limb; L02.416 Cutaneous abscess of left lower limb; E78.5 Hyperlipidemia, unspecified; N40.0 Benign prostatic hyperplasia without lower urinary tract symptoms; I10 Essential (primary) hypertension; Y83.9 Surgical procedure, unspecified as the cause of abnormal reaction of the patient, or of later complication, without mention of misadventure at the time of the procedure
CPT/HCPCS: 36415; 71045-TC-FY; 73701-TC-RT; 73721-RT-TC; 80048; 80053; 81003; 81015; 82803; 83605; 83735; 84100; 84484; 85025; 85027; 85610; 85651; 86140; 87040; 87070; 87086; 87186; 87205; 93005; 93010; 93971-TC; 99282-25; J1644